=== PATIENT | female | born 1980 | race Caucasian/White ===

== ENCOUNTER 2018-04-17 02:08 | Observation (INO) | payer OTHER ==
[2018-04-17 03:10] LABS: Urine Blood NEGATIVE (NEG); Urine Glucose NEGATIVE (NEG); Urine Protein NEGATIVE (NEG)
--- NOTE | 2018-04-17 03:47 | ER ---
Nurse's Notes [facility] Name: Trish Arambula Age: 38 yrs Sex: Female : 1980 Arrival Date: 04/17/2018 Time: 02:11 Bed 18 Private MD: Diagnosis: Abdominal tenderness;Functional dyspepsia Presentation: 04/17 02:40 Presenting complaint: Patient states: that she is having severe burning pain to upper fc abd. Was seen at urgent care on Saturday for sore throat. Given antibiotics for strep even though it was not positive. Then on Saturday she started to having abd pain, diarrhea, fever and nausea. Stopped the antibiotics. Continues to have abd pain, is tired and just feels bad. Transition of care: patient was not received from another setting of care. Onset of symptoms was April 14, 2018. Risk Assessment: Do you want to hurt yourself or someone else? Patient reports no desire to harm self or others. Initial Sepsis Screen: Does the patient meet any 2 criteria? No. Patient's initial sepsis screen is negative. Does the patient have a suspected source of infection? No. Patient's initial sepsis screen is negative. Care prior to arrival: None. 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 - Social history:: Smoking status: Patient/guardian denies using tobacco, Patient/guardian denies using alcohol, street drugs. - Ebola Screening: : Patient negative for fever greater than or equal to 101.5 degrees Fahrenheit, and additional compatible Ebola Virus Disease symptoms Patient denies exposure to infectious person Patient denies travel to an Ebola-affected area in the 21 days before illness onset. - Family history:: not pertinent. Screenin:00 Abuse screen: Denies threats or abuse. Nutritional screening: No deficits noted. jb4 Tuberculosis screening: No symptoms or risk factors identified. Fall Risk None identified. Assessment: 03:00 General: Appears in no apparent distress. comfortable, Behavior is calm, cooperative, jb4 appropriate for age. Pain: Complains of pain in epigastric area and right upper quadrant Pain radiates to left upper quadrant Pain currently is 4 out of 10 on a pain scale. Quality of pain is described as burning, Pain began Last saturday. Aggravated by eating. Neuro: Level of Consciousness is awake, alert, obeys commands, Oriented to person, place, time, situation. Cardiovascular: Patient's skin is warm and dry. Respiratory: Airway is patent Respiratory effort is even, unlabored, Respiratory pattern is regular, symmetrical. GI: Abdomen is flat, Bowel sounds present X 4 quads. Abd is soft and non tender in left upper quadrant, right lower quadrant and left lower quadrant Abdomen is tender to palpation in epigastric area and right upper quadrant Reports upper abdominal pain, diarrhea, nausea. : No signs and/or symptoms were reported regarding the genitourinary system. EENT: No signs and/or symptoms were reported regarding the EENT system. Derm: Skin is intact, Skin is pink, warm \T\ dry. Musculoskeletal: Circulation, motion, and sensation intact. 04:00 Reassessment: Patient appears in no apparent distress at this time. Patient and/or jb4 family updated on plan of care and expected duration. Pain level reassessed. Patient is alert, oriented x 3, equal unlabored respirations, skin warm/dry/pink. 04:00 Reassessment: Pt admitted to ER hold, See [facility] for further documentation. jb4 05:00 Reassessment: Patient appears in no apparent distress at this time. Patient and/or jb4 family updated on plan of care and expected duration. Pain level reassessed. Patient is alert, oriented x 3, equal unlabored respirations, skin warm/dry/pink. 06:00 Reassessment: Patient appears in no apparent distress at this time. Patient and/or jb4 family updated on plan of care and expected duration. Pain level reassessed. Patient is alert, oriented x 3, equal unlabored respirations, skin warm/dry/pink. 07:00 Reassessment: Patient appears in no apparent distress at this time. Patient and/or jb4 family updated on plan of care and expected duration. Pain level reassessed. Patient is alert, oriented x 3, equal unlabored respirations, skin warm/dry/pink. PT was going to be admitted. After ultrasound, ER physician decided to discharge. Vital Signs: 02:44 BP 119 / 87; Pulse 73; Resp 20; Temp 98.3; Pulse Ox 99% on R/A; Weight 81.65 kg (R); fc Height 5 ft. 10 in. (177.80 cm) (R); Pain 5/10; 04:00 BP 121 / 96; Pulse 64; Resp 16; Pulse Ox 100% on R/A; jb4 05:00 BP 124 / 80; Pulse 60; Resp 16; Pulse Ox 97% on R/A; jb4 06:00 BP 110 / 80; Pulse 60; Resp 18; Pulse Ox 98% on R/A; jb4 07:00 BP 116 / 87; Pulse 65; Resp 16; Pulse Ox 100% on R/A; jb4 02:44 Body Mass Index 25.83 (81.65 kg, 177.80 cm) ED Course: 02:11 Patient arrived in ED. ag3 02:42 Triage completed. 02:43 Lorenzo Weston, RN is Primary Nurse. jb4 02:44 Arm band placed on Patient placed in an exam room, on a stretcher. fc 03:00 Patient has correct armband on for positive identification. Placed in gown. Bed in low jb4 position. Call light in reach. Side rails up X 1. Pulse ox on. NIBP on. 03:08 Inserted saline lock: 22 gauge in right antecubital area, using aseptic technique. ag4 Blood collected. 03:33 Basic Metabolic Panel Sent. jb4 03:33 CBC with Diff Sent. jb4 03:33 Creatinine for Radiology Sent. jb4 03:33 Hepatic Function Sent. jb4 03:33 Lipase Sent. jb4 03:34 Praveen Desai MD is Attending Physician. perez 03:45 Curly Haywood MD is Hospitalizing Provider. perez 04:56 No provider procedures requiring assistance completed. Patient admitted, IV remains in jb4 place. 06:54 Hernán Smiley MD is Referral Physician. perez 06:54 Curly Haywood MD is Referral Physician. perez Administered Medications: 03:52 Drug: Pepcid 20 mg Route: IVP; Site: right antecubital; jb4 04:30 Follow up: Response: No adverse reaction jb4 03:54 Drug: Zofran 4 mg Route: IVP; Site: right antecubital; jb4 04:30 Follow up: Response: No adverse reaction; Nausea is decreased jb4 03:58 Drug: fentaNYL (PF) 25 mcg Route: IVP; Site: right antecubital; jb4 04:30 Follow up: Response: No adverse reaction; Pain is decreased jb4 04:49 Drug: Zosyn 3.375 grams Route: IVPB; Infused Over: 60 mins; Site: right antecubital; jb4 05:49 Follow up: Response: No adverse reaction; IV Status: Completed infusion jb4 04:49 Drug: NS 0.9% with KCl 20 mEq/L 1000 ml Route: IV; Rate: 125 ml/hr; Site: right jb4 antecubital; 06:13 Follow up: Response: No adverse reaction; IV Status: Infusion continued upon admission jb4 Outcome: 03:46 Decision to Hospitalize by Provider. perez 04:56 Admitted to ER Hold. Please see [facility] for further documentation. jb4 04:56 Condition: stable 04:56 Discharge instructions given to patient, Instructed on the need for admit, Demonstrated understanding of instructions. 06:55 Discharge ordered by . perez 07:12 Discharged to home ambulatory, with family. jb4 07:12 Condition: stable 07:12 Discharge instructions given to patient, Instructed on discharge instructions, follow up and referral plans. medication usage, Demonstrated understanding of instructions, follow-up care, medications. 07:13 Patient left the ED. jb4 Signatures: Praveen Desai MD MD cha Chretien, Felicia, RN RN fc Bryson, James, RN RN jb4 Shonda Flower3 Barak Mccartney 4
--- NOTE | 2018-04-17 03:47 | EDPHYS ---
Physician Documentation [facility] Name: Trish Arambula Age: 38 yrs Sex: Female : 1980 Arrival Date: 04/17/2018 Time: 02:11 Bed 18 Private MD: ED Physician Praveen Desai HPI: 04/17 03:41 This 38 yrs old Female presents to ER via Ambulatory with complaints of perez Abdominal Pain. 03:41 The patient presents with abdominal pain in the epigastric area, in the upper abdomen. perez Onset: The symptoms/episode began/occurred just prior to arrival, this morning. The symptoms radiate to back. Associated signs and symptoms: none. The symptoms are described as crampy, dull. Modifying factors: The symptoms are alleviated by nothing, the symptoms are aggravated by food. Severity of pain: At its worst the pain was moderate. The patient has experienced similar episodes in the past, a few times. 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 - Social history:: Smoking status: Patient/guardian denies using tobacco, Patient/guardian denies using alcohol, street drugs. - Ebola Screening: : Patient negative for fever greater than or equal to 101.5 degrees Fahrenheit, and additional compatible Ebola Virus Disease symptoms Patient denies exposure to infectious person Patient denies travel to an Ebola-affected area in the 21 days before illness onset. - Family history:: not pertinent. ROS: 03:41 Constitutional: Negative for fever, chills, and weight loss, Eyes: Negative for injury, perez pain, redness, and discharge, ENT: Negative for injury, pain, and discharge, Neck: Negative for injury, pain, and swelling, Cardiovascular: Negative for chest pain, palpitations, and edema, Respiratory: Negative for shortness of breath, cough, wheezing, and pleuritic chest pain, Back: Negative for injury and pain, : Negative for injury, bleeding, discharge, and swelling, MS/Extremity: Negative for injury and deformity, Skin: Negative for injury, rash, and discoloration, Neuro: Negative for headache, weakness, numbness, tingling, and seizure, Psych: Negative for depression, anxiety, suicide ideation, homicidal ideation, and hallucinations, Allergy/Immunology: Negative for hives, rash, and allergies, Endocrine: Negative for neck swelling, polydipsia, polyuria, polyphagia, and marked weight changes, Hematologic/Lymphatic: Negative for swollen nodes, abnormal bleeding, and unusual bruising. 03:41 Abdomen/GI: Positive for abdominal pain, of the epigastric area and right upper quadrant. Exam: 03:41 Constitutional: This is a well developed, well nourished patient who is awake, alert, perez and in no acute distress. Head/Face: Normocephalic, atraumatic. Eyes: Pupils equal round and reactive to light, extra-ocular motions intact. Lids and lashes normal. Conjunctiva and sclera are non-icteric and not injected. Cornea within normal limits. Periorbital areas with no swelling, redness, or edema. ENT: Nares patent. No nasal discharge, no septal abnormalities noted. Tympanic membranes are normal and external auditory canals are clear. Oropharynx with no redness, swelling, or masses, exudates, or evidence of obstruction, uvula midline. Mucous membranes moist. Neck: Trachea midline, no thyromegaly or masses palpated, and no cervical lymphadenopathy. Supple, full range of motion without nuchal rigidity, or vertebral point tenderness. No Meningismus. Chest/axilla: Normal chest wall appearance and motion. Nontender with no deformity. No lesions are appreciated. Cardiovascular: Regular rate and rhythm with a normal S1 and S2. No gallops, murmurs, or rubs. Normal PMI, no JVD. No pulse deficits. Respiratory: Lungs have equal breath sounds bilaterally, clear to auscultation and percussion. No rales, rhonchi or wheezes noted. No increased work of breathing, no retractions or nasal flaring. Back: No spinal tenderness. No costovertebral tenderness. Full range of motion. Skin: Warm, dry with normal turgor. Normal color with no rashes, no lesions, and no evidence of cellulitis. MS/ Extremity: Pulses equal, no cyanosis. Neurovascular intact. Full, normal range of motion. Neuro: Awake and alert, GCS 15, oriented to person, place, time, and situation. Cranial nerves II-XII grossly intact. Motor strength 5/5 in all extremities. Sensory grossly intact. Cerebellar exam normal. Normal gait. Psych: Awake, alert, with orientation to person, place and time. Behavior, mood, and affect are within normal limits. 03:41 Abdomen/GI: Inspection: abdomen appears normal, Bowel sounds: normal, Palpation: mild abdominal tenderness, in the epigastric area and right upper quadrant, Liver: no appreciated palpable abnormalities, Hernia: not appreciated. Vital Signs: 02:44 BP 119 / 87; Pulse 73; Resp 20; Temp 98.3; Pulse Ox 99% on R/A; Weight 81.65 kg (R); fc Height 5 ft. 10 in. (177.80 cm) (R); Pain 5/10; 04:00 BP 121 / 96; Pulse 64; Resp 16; Pulse Ox 100% on R/A; jb4 05:00 BP 124 / 80; Pulse 60; Resp 16; Pulse Ox 97% on R/A; jb4 06:00 BP 110 / 80; Pulse 60; Resp 18; Pulse Ox 98% on R/A; jb4 07:00 BP 116 / 87; Pulse 65; Resp 16; Pulse Ox 100% on R/A; jb4 02:44 Body Mass Index 25.83 (81.65 kg, 177.80 cm) MDM: 03:34 Patient medically screened. [facility] 03:41 Data reviewed: vital signs, nurses notes, lab test result(s). [facility] 04/17 03:06 Order name: Urine Dipstick--Ancillary (enter results); Complete Time: 03:34 [facility] 04/17 03:06 Order name: Urine --Ancillary (enter results); Complete Time: 03:34 [facility] 04/17 03:25 Order name: Basic Metabolic Panel; Complete Time: 04:09 [facility] 04/17 03:25 Order name: CBC with Diff; Complete Time: 04:09 [facility] 04/17 03:25 Order name: Creatinine for Radiology; Complete Time: 04:09 [facility] 04/17 03:25 Order name: Hepatic Function; Complete Time: 04:09 [facility] 04/17 03:25 Order name: Lipase; Complete Time: 04:09 [facility] 04/17 04:10 Order name: US Abdomen Limited [facility] 04/17 07:07 Order name: EDMS 04/17 03:25 Order name: IV Saline Lock; Complete Time: 03:32 jb4 04/17 03:25 Order name: Labs collected and sent; Complete Time: 03:32 jb4 Administered Medications: 03:52 Drug: Pepcid 20 mg Route: IVP; Site: right antecubital; jb4 04:30 Follow up: Response: No adverse reaction jb4 03:54 Drug: Zofran 4 mg Route: IVP; Site: right antecubital; jb4 04:30 Follow up: Response: No adverse reaction; Nausea is decreased jb4 03:58 Drug: fentaNYL (PF) 25 mcg Route: IVP; Site: right antecubital; jb4 04:30 Follow up: Response: No adverse reaction; Pain is decreased jb4 04:49 Drug: Zosyn 3.375 grams Route: IVPB; Infused Over: 60 mins; Site: right antecubital; jb4 05:49 Follow up: Response: No adverse reaction; IV Status: Completed infusion jb4 04:49 Drug: NS 0.9% with KCl 20 mEq/L 1000 ml Route: IV; Rate: 125 ml/hr; Site: right jb4 antecubital; 06:13 Follow up: Response: No adverse reaction; IV Status: Infusion continued upon admission jb4 Disposition: 04/17/18 06:55 Discharged to Home. Impression: Abdominal tenderness, Functional dyspepsia. - Condition is Stable. - Discharge Instructions: Abdominal Pain, Adult, Abdominal Pain, Adult, [id number]. - Prescriptions for Bentyl 20 mg Oral Tablet - take 1 tablet by ORAL route every 6 hours As needed; 20 tablet. Protonix 40 mg Oral Tablet - take 1 tablet by ORAL route once daily; 30 tablet. Zofran 4 mg Oral Tablet - take 1 tablet by ORAL route every 12 hours As needed; 20 tablet. - Medication Reconciliation Form, Thank You Letter, Antibiotic Education, Prescription Opioid Use, Work release form form. - Follow up: Private Physician; When: 2 - 3 days; Reason: Recheck today's complaints, Continuance of care, Re-evaluation by your physician. Follow up: Hernán Smiley MD; When: 2 - 3 days; Reason: Recheck today's complaints, Re-evaluation by your physician. Follow up: Curly Haywood MD; When: 2 - 3 days; Reason: Recheck today's complaints, Re-evaluation by your physician. - Problem is new. - Symptoms have improved. Signatures: Dispatcher [employer] EDMS Praveen Desai MD MD cha Chretien, Felicia, RN RN Lorenzo Weston RN RN jb4 Corrections: (The following items were deleted from the chart) 04:53 03:46 Hospitalization Ordered by Curly Haywood MD for Observation. Preliminary diagnosis fc is Abdominal tenderness. Bed requested for Telemetry/MedSurg (observation). Status is Observation. Condition is Stable. Problem is new. Symptoms have improved. UTI on Admission? No. perez 06:52 04:53 04/17/2018 03:46 Hospitalization Ordered by Curly Haywood MD for Observation. perez Preliminary diagnosis is Abdominal tenderness. Bed requested for [facility] ER HOLD. Status is Observation. Condition is Stable. Problem is new. Symptoms have improved. UTI on Admission? No. fc 07:13 06:55 04/17/2018 06:55 Discharged to Home. Impression: Abdominal tenderness; Functional jb4 dyspepsia. Condition is Stable. Forms are Medication Reconciliation Form, Thank You Letter, Antibiotic Education, Prescription Opioid Use. Follow up: Private Physician; When: 2 - 3 days; Reason: Recheck today's complaints, Continuance of care, Re-evaluation by your physician. Follow up: Hernán Smiley; When: 2 - 3 days; Reason: Recheck today's complaints, Re-evaluation by your physician. Follow up: Curly Haywood; When: 2 - 3 days; Reason: Recheck today's complaints, Re-evaluation by your physician. Problem is new. Symptoms have improved. perez
[2018-04-17 03:56] LABS: Absolute Lymphocytes (CBC) 2.1 K/uL (0.7-4.9); Absolute Monocytes 0.8 K/uL (0.1-1.3); Absolute Neutrophil 5.2 K/uL (1.8-8.0); Basophils % 0.7 % (0-1.3); Eosinophils % 1.5 % (0-4.4); Hematocrit 40.8 % (36.0-45.0); Lymphocytes % 25.2 % (15.3-44.8); MPV 8.5 fL (7.6-11.3); Monocytes % 9.3 % (3.3-12.3); RBC Red Blood Cell Count 4.69 M/uL (3.86-4.86)
[2018-04-17 04:01] LABS: ALT/SGPT 25 U/L (12-78); AST/SGOT 20 U/L (15-37); Albumin 3.3 g/dL (3.4-5.0); Alkaline Phosphatase 90 U/L (45-117); BUN Blood Urea Nitrogen 8 mg/dL (7-18); Bicarbonate 23 mmol/L (21-32); Bilirubin Direct < 0.1 mg/dL (0-0.2); Bilirubin Total 0.2 mg/dL (0.2-1.0); Glucose Level 99 mg/dL (74-106); Lipase 132 U/L (73-393); Potassium 3.2 mmol/L (3.5-5.1); Protein, Total 6.9 g/dL (6.4-8.2); Sodium Level 145 mmol/L (136-145)
[2018-04-17] MEDS ORDERED: FAMOTIDINE 20 MG/2 ML VIAL IV ONE (04:10)
[2018-04-17] MEDS ORDERED: FENTANYL CITR 100 MCG/2 ML ONE (04:10)
[2018-04-17] MEDS ORDERED: ONDANSETRON 4 MG/2 ML VIAL ONE (04:10)
[2018-04-17] MEDS ORDERED: MORPHINE 4 MG/ML SYR IV PRN (04:44)
[2018-04-17] MEDS ORDERED: NS KCL 20MEQ 1,000 ML IV ONE (04:44)
[2018-04-17] MEDS ORDERED: ACETAMINOPHEN 500 MG TAB PO PRN (04:44)
[2018-04-17] MEDS ORDERED: ONDANSETRON 4 MG/2 ML VIAL IV PRN (04:44)
[2018-04-17] MEDS ORDERED: NA CHLORIDE 0.9% 1,000 ML IV SCH (04:44)
[2018-04-17] MEDS ORDERED: PIPER/TAZO/NS 3.375gm 3.375 GM/100 ML BAG ONE (04:45)
[2018-04-17] MEDS ORDERED: NS KCL 20MEQ 20 MEQ/1,000 ML BAG IV SCH (06:00)
[2018-04-17 06:06] VITALS: BMI 26.1
--- NOTE | 2018-04-17 07:07 | RAD REPORT ---
EXAM DESCRIPTION: US - Abdomen Exam Limited - 04/17/2018 6:58 am CLINICAL HISTORY: Abdominal pain COMPARISON: None. FINDINGS: No gallstones, sludge or other abnormalities within the gallbladder lumen. There is no wal l thickening or pericholecystic fluid. No common duct stone or biliary tree dilatation identified. IMPRESSION: Normal gallbladder and biliary tree ultrasound.
[2018-04-17 08:41] VITALS: TEMP 98.3
[2018-04-17 08:46] VITALS: BP 116/87; O2SAT 100
[2018-04-17] MEDS ORDERED: PIPER/TAZO/NS 3.375gm 3.375 GM/100 ML BAG IVPB SCH (12:00)
[2018-04-17] MEDS ORDERED: FAMOTIDINE 20 MG/2 ML VIAL IV SCH (21:00)
== END 2018-04-17 07:14 | disposition home or self-care (01) ==
LOC: ER 02:08 → ERHOLD 03:49
PROVIDERS: ADMIT Surgery; ATTEND Emergency Medicine
DX: R10.816 Epigastric abdominal tenderness (principal); R10.11 Right upper quadrant pain; K30 Functional dyspepsia
CPT/HCPCS: 36415; 76705; 80048; 80076; 81003; 81025; 83690; 85025; 96365; 96375; 99285; G0378; J2405; J2543; J3010

== ENCOUNTER 2018-04-18 08:18 | Day surgery (SDC) | payer OTHER ==
[2018-04-18] MEDS ORDERED: Ringers Lactate 1,000 ML IV ONE (09:15)
[2018-04-18] MEDS ORDERED: LIDOCAINE 1% MPF 5 ML VIAL ONE (10:01)
[2018-04-18] MEDS ORDERED: MIDAZOLAM HCL 2 MG/2 ML INJ ONE (10:01)
[2018-04-18] MEDS ORDERED: PROPOFOL 200 MG/20 ML VIAL IV ONE (10:01)
[2018-04-18 10:57] VITALS: TEMP 98.5
[2018-04-18 10:58] VITALS: BP 115/75; O2SAT 100
--- NOTE | 2018-04-18 11:15 | ENDO RPT ---
[address], [address] EGD PROCEDURE REPORT EXAM DATE: 04/18/2018 PATIENT NAME: Trish Arambula MR#: [id number] BIRTHDATE: 1980 ATTENDING: Curly Haywood DR STATUS: outpatient SENIOR MARKETING COORDINATOR: Olga Patterson RN, Radha Davalos, and Minh Davalos INDICATIONS: The patient is a 38 yr old Female here for an EGD due to mid epigastric abdominal pain PROCEDURE PERFORMED: EGD with biopsy for H. pylori MEDICATIONS: Per Anesthesia. TOPICAL ANESTHETIC: none CONSENT: The patient understands the risks and benefits of the procedure and understands that these risks include, but are not limited to: sedation, allergic reaction, infection, perforation and/or bleeding. Alternative means of evaluation and treatment include, among others: physical exam, x-rays, and/or surgical intervention. The patient elects to proceed with this endoscopic procedure. DESCRIPTION OF PROCEDURE: During intra-op preparation period all mechanical medical equipment was checked for proper function. Hand hygiene and appropriate measures for infection prevention was taken. Procedure, possible complications, and alternatives including but not limited to the possibility of bleeding, perforation, tear, infection, sepsis, need for surgery, need for blood transfusion, and anesthesia related complications were explained to the patient. After the risks, benefits and alternatives of the procedure were thoroughly explained, Informed consent was verified, confirmed and timeout was successfully executed by the treatment team. The patient was placed in the left lateral position. The patient was anesthetized with topical anesthesia. Through the anesthetized oropharyngeal area, the scope was passed without any difficulty. The [id number] ([id number]) endoscope was introduced through the mouth and advanced to the second portion of the duodenum. Retroflexed views revealed no abnormalities. The gastroscope was then slowly withdrawn and removed. Mild gastritis was found in the body and the antrum of the stomach. A biopsy for H. pylori was taken. Multiple biopsies were obtained and sent to pathology. Duodenitis was found in the bulb of the duodenum. A biopsy for H. pylori was taken. ADVERSE EVENTS: There were no complications. IMPRESSIONS: 1. Mild gastritis was found in the body and the antrum of the stomach 2. Duodenitis was found in the bulb of the duodenum RECOMMENDATIONS: 1. anti-reflux regimen 2. acid suppression therapy 3. await biopsy results 4. follow-up: office 2 week(s) 5. avoid NSAIDS 6. follow-up of helicobacter pylori status, treat if indicated REPEAT EXAM: for EGD. Curly Haywood DR eSigned: Curly Haywood DR 04/18/2018 10:08 AM cc: CPT CODES: ICD9 CODES: PATIENT NAME: RalfTrish MR#: [id number]
== END 2018-04-18 10:55 | disposition home health service (06) ==
LOC: OR 08:18
PROVIDERS: ATTEND Surgery
PROC: 0DB78ZX Excision of Stomach, Pylorus, Via Natural or Artificial Opening Endoscopic, Diagnostic (ICD-10-PCS; 2018-04-18)
PROC: 0DB68ZX Excision of Stomach, Via Natural or Artificial Opening Endoscopic, Diagnostic (ICD-10-PCS; 2018-04-18)
PROC: 0DB98ZX Excision of Duodenum, Via Natural or Artificial Opening Endoscopic, Diagnostic (ICD-10-PCS; principal; 2018-04-18 10:15)
DX: K29.50 Unspecified chronic gastritis without bleeding (principal); K29.80 Duodenitis without bleeding
CPT/HCPCS: 88305; 88312; J2250; J2704

== ENCOUNTER 2018-05-08 07:33 | Day surgery (SDC) | payer OTHER ==
[2018-05-08] MEDS ORDERED: PROPOFOL 200 MG/20 ML VIAL IV ONE (07:48)
[2018-05-08] MEDS ORDERED: DEXAMETHASONE 4 MG/ML VIAL ONE (07:48)
[2018-05-08] MEDS ORDERED: FENTANYL CITR 100 MCG/2 ML ONE (07:48)
[2018-05-08] MEDS ORDERED: LIDOCAINE 2% MPF 5 ML VIAL ONE (07:48)
[2018-05-08] MEDS ORDERED: ROCURONIUM 50 MG/5 ML VIAL IV ONE (07:48)
[2018-05-08] MEDS ORDERED: MIDAZOLAM HCL 2 MG/2 ML INJ ONE (07:48)
[2018-05-08] MEDS ORDERED: CEFOXITIN/SWI 1gm 1 GM/10 ML SYR ONE (07:59)
[2018-05-08] MEDS ORDERED: Ringers Lactate 1,000 ML IV ONE (07:59)
[2018-05-08] MEDS ORDERED: SCOPOLAMINE HYDROBROMIDE PATCH TD ONE (07:59)
[2018-05-08] MEDS ORDERED: ONDANSETRON 4 MG/2 ML VIAL ONE (08:37)
[2018-05-08] MEDS ORDERED: BUPIVACAINE 0.25% PF 10 ML VIAL ONE (08:38)
--- NOTE | 2018-05-08 09:18 | P.OP ---
Preoperative diagnosis: Biliary Dyskinesia Postoperative diagnosis: Biliary Dyskinesia Primary procedure: Laparoscopic Cholecystectomy Anesthesia: GETA + Local Estimated blood loss: <10cc Specimen: Gallbladder Findings: Bluish Gallbladder Complications: None Transferred to: Recovery Room Condition: Good
[2018-05-08] MEDS ORDERED: KETOROLAC 30 MG/ML INJ ONE (09:29)
[2018-05-08] MEDS: FENTANYL CITR 100 MCG/2 ML ONE ×4 (09:37→09:52)
[2018-05-08 09:49] VITALS: O2SAT 100
[2018-05-08] MEDS ORDERED: HYDROCODONE/APAP 5/325 MG TAB ONE (10:36)
[2018-05-08 10:51] VITALS: TEMP 97.5
[2018-05-08 15:48] VITALS: BP 112/64
--- NOTE | 2018-05-08 21:20 | OP ---
Date of Procedure: 05/08/2018 Surgeon: Curly Haywood MD, Preoperative Diagnosis: Biliary dyskinesia. Postoperative Diagnosis: Biliary dyskinesia. Procedure Performed: Laparoscopic cholecystectomy. Anesthesia: General endotracheal plus local with 0.25% Marcaine with epinephrine. Estimated Blood Loss: Less than 10 cc. Specimen: Gallbladder. Findings: Bluish gallbladder. Complications: None. Disposition: Transferred to recovery room in good condition. Procedure In Detail: After informed consent was obtained, the patient was brought to the operating r oom, prepped and draped in usual sterile fashion. After adequate anesthesia was achieved, supraumbil ical area was anesthetized with 0.25% Marcaine and sharply incised. A 5-mm trocar was introduced in the abdomen without evidence of complication. Insufflation was obtained to 15 mmHg this time. The a michelle was inspected for injury to vital structures, none was appreciated at this time. The patient was then positioned slightly head up. Additional trocar chosen in the epigastric region. This was kurt larly anesthetized, sharply incised. A 5-mm trocar was introduced under direct visualization without evidence of complication. The umbilical trocar was then up-sized to a 12 mm under direct visualizat ion without evidence of complication. The patient was then positioned slightly right side up and hea d up and the additional trocar site was identified in the right upper quadrant. This was similarly a nesthetized and sharply incised and a 5-mm trocar was introduced in the abdomen without evidence of c omplication under direct visualization. The patient was then positioned in a gallbladder position, t hat is head-up right-side up and the grasper was used to grasp the gallbladder, which was found to be floppy and bluish in discoloration, pushing the patient's gallbladder toward the right shoulder. Di ssection continued down along the wall of the gallbladder down to expose the cystic duct and cystic a rtery. The critical view of safety was obtained. At this time, after clearing posteriorly and ident ifying only 2 structures entering the gallbladder, these were both doubly clipped on the proximal bell e and singly on the distal side with titanium clips and Endo Sebastián were then brought in and used to ligate the 2 above structures on the gallbladder. We then removed the hepatic fossa without evidence of complication using electrocautery. The gallbladder was then placed in an EndoCatch bag, removed the umbilical trocar, and sent off for pathologic examination. The abdomen was then re-insufflated. The area was inspected. The surgical site was inspected. At the gallbladder fossa, the clips were found to be in good anatomic position. The area was copiously irrigated and suctioned out until comp letely dry with no additional hemostatic maneuvers required. The patient was positioned in neutral p osition. The umbilical trocar was then removed and the umbilical trocar site was closed using a Carrie dodd-Latrell suture passer with 0 Vicryl in interrupted fashion with good approximation of the tissues . At this time, all remaining trocars were removed under direct visualization without evidence of co mplication. After completely decompressing the abdomen, all skin incisions were copiously irrigated and closed with a 4-0 Monocryl in a running fashion Dermabond placed over top. The patient tolerated the procedure well without evidence of complication and transferred to the PACU in good condition. All counts were correct at the end of the case. KANDICE/WALTER Voice ID: [id number] Report ID: [id number]
== END 2018-05-08 12:05 | disposition home or self-care (01) ==
LOC: OR 07:33
PROVIDERS: ATTEND Surgery
PROC: 0FT44ZZ Resection of Gallbladder, Percutaneous Endoscopic Approach (ICD-10-PCS; principal; 2018-05-08 08:30)
DX: K82.8 Other specified diseases of gallbladder (principal); K81.1 Chronic cholecystitis; K21.9 Gastro-esophageal reflux disease without esophagitis
CPT/HCPCS: 81025; 88304; J2250; J2405; J2704; J3010

== ENCOUNTER 2018-10-23 20:33 | Observation (INO) | payer OTHER ==
[2018-10-23 21:21] LABS: Urine Blood NEGATIVE (NEG); Urine Glucose NEGATIVE (NEG); Urine Protein NEGATIVE (NEG); Urine Specific Gravity 1.025 (1.005-1.030)
[2018-10-23] MEDS ORDERED: MORPHINE 4 MG/ML SYR ONE (21:48)
[2018-10-23] MEDS ORDERED: ONDANSETRON 4 MG/2 ML VIAL ONE (21:48)
--- NOTE | 2018-10-24 01:01 | RAD REPORT ---
EXAM DESCRIPTION: US - Transvaginal OB - 10/23/2018 10:24 pm CLINICAL HISTORY: ABD CRAMPING, COMPARISON: No comparisons FINDINGS: The uterus measures 7.3 x 5.7 x 4.3 cm. Endometrial stripe measures 9 mm. There is no evid ence of a gestational sac within the endometrium. A small 5 mm cystic area seen posterior to the fund al endometrium. The right ovary mid measures 3.9 x 3.7 x 2.9 cm with a 3.6 x 2.9 cm cyst present. Normal Doppler bloo d flow seen to the right ovary. The left ovary measures 2.8 x 2.7 x 1.6 cm. Normal Doppler blood flow is seen to the left ovary. There is no evidence of torsion. No pelvic ascites. IMPRESSION: No normal gestational sac is seen within the endometrial canal. Small 5 mm cystic area i s seen posterior to the fundal endometrial stripe. This is of unclear etiology and could potentially represent an abnormally positioned gestational sac. Recommend follow-up ultrasound in 7 days and lanny elation with serial HCG levels. No evidence of ovarian torsion. The findings were discussed with Dr. Prather in the ER on 10/24/2018 at 12:55 a.m. by telephone.
[2018-10-24] MEDS ORDERED: FENTANYL CITR 100 MCG/2 ML ONE (01:12)
[2018-10-24 02:15] LABS: Absolute Lymphocytes (CBC) 4.4 K/uL (0.7-4.9); Basophils % 0.6 % (0-1.3); Lymphocytes % 33.8 % (15.3-44.8); MPV 9.1 fL (7.6-11.3); RBC Red Blood Cell Count 3.89 M/uL (3.86-4.86)
[2018-10-24 02:18] LABS: Potassium 4.1 mmol/L (3.5-5.1)
--- NOTE | 2018-10-24 03:15 | EDPHYS ---
Physician Documentation [facility] Name: Trish Arambula Age: 38 yrs Sex: Female : 1980 Arrival Date: 10/23/2018 Time: 20:36 Bed 20 Private MD: Dayanara Jason ED Physician Hossein Prather HPI: 10/23 21:01 This 38 yrs old Female presents to ER via Ambulatory with complaints of kb Pelvic Pain, Back Pain, concern. 21:04 The patient presents to the emergency department with abdominal pain, of the suprapubic kb area and left lower quadrant, that started 5 day(s) ago, described as constant, crampy. The estimated gestational age is 6 weeks. course: care: private OB physician, Dr. Jason, Ultrasound: the patient had an ultrasound, which showed nothing seen in uterus or tubes. Previous pregnancies: in previous pregnancies patient has had. Associated signs and symptoms: Pertinent positives: abdominal pain, Pertinent negatives: chest pain, diarrhea, dysuria, fever, frequency, nausea, ruptured membranes, seizure, shortness of breath, vaginal bleeding, vaginal discharge, vomiting. The patient has not experienced similar symptoms in the past. The patient has been recently seen by a physician:. Pt reports she had IVF and should be approx 5 weeks 5 days . States she had blood work last week and hcg was 314. Went back on Saturday with left abd pain and her hcg was 152. Rechecked hcg on Saturday and it was 126. Her fertility dr told her it could be an ectopic because her numbers were going down slowly so if she had increased pain she needed to come to the ER. States the pain has been worse today with nausea. Was supposed to have more blood work tomorrow, but was advised not to wait due to the pain. 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 - Social history:: Smoking status: Patient/guardian denies using tobacco. - Ebola Screening: : No symptoms or risks identified at this time. ROS: 20:58 Constitutional: Negative for fever, chills, and weight loss, Cardiovascular: Negative kb for chest pain, palpitations, and edema, Respiratory: Negative for shortness of breath, cough, wheezing, and pleuritic chest pain, Back: Negative for injury and pain, : Negative for injury, bleeding, discharge, and swelling, MS/Extremity: Negative for injury and deformity, Skin: Negative for injury, rash, and discoloration, Neuro: Negative for headache, weakness, numbness, tingling, and seizure. 20:58 Abdomen/GI: Positive for abdominal pain, nausea. Exam: 21:01 Constitutional: This is a well developed, well nourished patient who is awake, alert, kb and in no acute distress. Head/Face: Normocephalic, atraumatic. Chest/axilla: Normal chest wall appearance and motion. Nontender with no deformity. No lesions are appreciated. Cardiovascular: Regular rate and rhythm with a normal S1 and S2. No gallops, murmurs, or rubs. Normal PMI, no JVD. No pulse deficits. Respiratory: Lungs have equal breath sounds bilaterally, clear to auscultation and percussion. No rales, rhonchi or wheezes noted. No increased work of breathing, no retractions or nasal flaring. Back: No spinal tenderness. No costovertebral tenderness. Full range of motion. Skin: Warm, dry with normal turgor. Normal color with no rashes, no lesions, and no evidence of cellulitis. MS/ Extremity: Pulses equal, no cyanosis. Neurovascular intact. Full, normal range of motion. Neuro: Awake and alert, GCS 15, oriented to person, place, time, and situation. Cranial nerves II-XII grossly intact. Motor strength 5/5 in all extremities. Sensory grossly intact. Cerebellar exam normal. Normal gait. 21:01 Abdomen/GI: Inspection: abdomen appears normal, Bowel sounds: normal, in all quadrants, Palpation: soft, in all quadrants, mild abdominal tenderness, in the suprapubic area, moderate abdominal tenderness, in the left lower quadrant. 10/24 02:10 : Pelvic Exam: External exam: is normal, Speculum exam: no bleeding is noted, no cp cervicitis, os that is closed, bimanual exam reveals no cervical motion tenderness, no adnexal tenderness on right, left adnexal tenderness, no adnexal mass on right, no adnexal mass on left, discharge, white, the nurse was present for the exam. Vital Signs: 10/23 20:41 BP 133 / 89; Pulse 84; Resp 16; Temp 98.4; Pulse Ox 98% on R/A; Weight 83.01 kg; Height la1 5 ft. 10 in. (177.80 cm); Pain 5/10; 21:55 BP 106 / 76; Pulse 73; Resp 16; Temp 98.4; Pulse Ox 99% on R/A; ak1 10/24 00:40 BP 114 / 71; Pulse 67; Resp 16; Temp 98.4; Pulse Ox 100% on R/A; ak1 01:00 BP 109 / 70; Pulse 65; Resp 16; Temp 98.6; Pulse Ox 100% on R/A; ak1 02:55 BP 99 / 63; Pulse 65; Resp 16; Pulse Ox 99% on R/A; ak1 10/23 20:41 Body Mass Index 26.26 (83.01 kg, 177.80 cm) la1 MDM: 10/23 20:44 Patient medically screened. kb 21:01 Data reviewed: vital signs, nurses notes. Data interpreted: Pulse oximetry: on room air kb is 98 %. Interpretation: normal. 21:44 Transition of care: After a detail discussion of the patient's case, care is kb transferred to Praveen XIE. 10/24 02:24 Physician consultation: Clark Perdomo MD. kdr 03:04 Physician consultation: Clark Perdomo MD in the emergency department to see patient at 03:04. 10/23 20:45 Order name: HCG-Quantitative; Complete Time: 21:24 kb 10/23 20:45 Order name: Abo/rh Typing; Complete Time: 02:58 kb 10/23 20:54 Order name: Urine Dipstick--Ancillary (enter results); Complete Time: 21:24 mw2 10/23 20:54 Order name: Urine --Ancillary (enter results); Complete Time: 21:24 mw2 10/24 01:18 Order name: CBC with Diff; Complete Time: 02:58 cp 10/24 01:18 Order name: BMP; Complete Time: 02:58 cp 10/24 01:18 Order name: Type And Screen cp 10/24 01:27 Order name: GC (GONORR/CHLAMYDIA) Probe cp 10/24 01:27 Order name: Wet Prep cp 10/24 03:30 Order name: Basic Metabolic Panel EDMS 10/24 03:30 Order name: Basic Metabolic Panel EDMS 10/24 03:30 Order name: CBC with Automated Diff EDMS 10/24 03:30 Order name: CBC with Automated Diff EDMS 10/24 03:30 Order name: Lipase EDMS 10/23 20:45 Order name: US Transvaginal Ob; Complete Time: 01:03 kb 10/24 01:11 Interpretation: Report reviewed. 10/23 20:45 Order name: Urine Dipstick-Ancillary (obtain specimen); Complete Time: 20:53 kb 10/24 01:18 Order name: IV; Complete Time: 01:19 cp 10/24 01:20 Order name: Pelvic Exam Setup; Complete Time: 01:52 ak1 10/24 03:30 Order name: NPO EDMS 10/24 03:30 Order name: Lipase EDMS 10/24 03:30 Order name: Liver (Hepatic) Function EDMS 10/24 03:30 Order name: Liver (Hepatic) Function EDMS Administered Medications: 10/23 21:54 Drug: Zofran 4 mg Route: IVP; Site: right antecubital; ak1 22:16 Follow up: Response: No adverse reaction ak1 21:54 Drug: morphine 4 mg Route: IVP; Site: right antecubital; ak1 22:16 Follow up: Response: No adverse reaction; Pain is unchanged, physician notified; RASS: ak1 Alert and Calm (0) 22:39 Not Given (Patient Refused): Bentyl 20 mg PO once ak1 22:39 Not Given (Patient Refused): Tylenol 1000 mg PO once ak1 22:39 Not Given (Patient Refused): NS 0.9% 1000 ml IV at 1 bolus Per protocol; 1000 mL bolus ak1 10/24 01:17 Drug: fentaNYL (PF) 25 mcg Route: IVP; Site: right antecubital; ak1 01:52 Follow up: Response: No adverse reaction; Pain is decreased; RASS: Alert and Calm (0) ak1 02:59 Not Given (Patient Refused): NS 0.9% 1000 ml IV at 1 bolus Per protocol; 1000 mL bolus ak1 Disposition: 04:16 Co-signature as Attending Physician, Hossein Prather MD I agree with the assessment and kdr plan of care. Disposition: 10/24/18 03:14 Hospitalization ordered by Clark Perdomo for Observation. Preliminary diagnosis are related conditions, unspecified, first trimester, Lower abdominal pain, unspecified - left, possible ectopic. - [facility]. - Status is Observation. ak1 - Condition is Stable. - Problem is new. - Symptoms have improved. UTI on Admission? No Signatures: Dispatcher [employer] EDMS Cristine Cifuentes, TESTER OPERATOR-C TESTER OPERATOR-Ckb Hossein Prather MD MD kdr Roberth Stallworth RN RN meri1 Claudette Chopra RN RN ak1 Praveen Rodriguez PA PA cp Garcia, Cindy, RN RN cg Corrections: (The following items were deleted from the chart) 03:33 03:14 Hospitalization Ordered by Clark Perdomo MD for Observation. Preliminary cg diagnosis is related conditions, unspecified, first trimester; Lower abdominal pain, unspecified - left, possible ectopic. Bed requested for [facility]. Status is Observation. Condition is Stable. Problem is new. Symptoms have improved. UTI on Admission? No. cp 04:04 03:33 10/24/2018 03:14 Hospitalization Ordered by Clark Perdomo MD for Observation. ak1 Preliminary diagnosis is related conditions, unspecified, first trimester; Lower abdominal pain, unspecified - left, possible ectopic. Bed requested for [facility]. Status is Observation. Condition is Stable. Problem is new. Symptoms have improved. UTI on Admission? No. cg
--- NOTE | 2018-10-24 03:15 | ER ---
Nurse's Notes [facility] Name: Trish Arambula Age: 38 yrs Sex: Female : 1980 Arrival Date: 10/23/2018 Time: 20:36 Bed 20 Private MD: Dayanara Jason Diagnosis: related conditions, unspecified, first trimester;Lower abdominal pain, unspecified-left, possible ectopic Presentation: 10/23 20:39 Presenting complaint: Patient states: I had IVF and had my 5 week apt on Saturday and my la1 HCG was 152 and they couldn't see anything on the US, I went back on Saturday for FU and my HCG only lowered slightly to 128. They were concerned for ectopic and gave me pain medicine but told me if my pain got worse to come to the ER. My pain is worse now. Transition of care: patient was not received from another setting of care. Onset of symptoms was October 23, 2018. Risk Assessment: Do you want to hurt yourself or someone else? Patient reports no desire to harm self or others. Initial Sepsis Screen: Does the patient meet any 2 criteria? No. Patient's initial sepsis screen is negative. Does the patient have a suspected source of infection? No. Patient's initial sepsis screen is negative. Care prior to arrival: None. 20:39 Method Of Arrival: Ambulatory la1 20:39 Acuity: YISSEL 3 la1 Triage Assessment: 20:45 General: Appears in no apparent distress. Behavior is calm, cooperative. 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 - Social history:: Smoking status: Patient/guardian denies using tobacco. - Ebola Screening: : No symptoms or risks identified at this time. Screenin:45 Abuse screen: Denies threats or abuse. Denies injuries from another. Nutritional ak1 screening: No deficits noted. Tuberculosis screening: No symptoms or risk factors identified. Fall Risk None identified. Assessment: 21:01 General: Appears in no apparent distress. Behavior is calm, cooperative. Pain: ak1 Complains of pain in left lower quadrant and suprapubic area. Neuro: Level of Consciousness is awake, alert, obeys commands, Oriented to person, place, time, situation, Community Marketing Coordinator are equal bilaterally Moves all extremities. Gait is steady, Speech is normal, Facial symmetry appears normal. Cardiovascular: No deficits noted. Respiratory: Airway is patent Trachea midline Respiratory effort is even, unlabored, Respiratory pattern is regular. GI: Abdomen is round non-distended, Abd is soft X 4 quads Abdomen is tender to palpation in left lower quadrant and suprapubic area. : No signs and/or symptoms were reported regarding the genitourinary system. EENT: No signs and/or symptoms were reported regarding the EENT system. Derm: No signs and/or symptoms reported regarding the dermatologic system. Musculoskeletal: No signs and/or symptoms reported regarding the musculoskeletal system. 21:20 Reassessment: US at bedside. ak1 21:56 Reassessment: Patient appears in no apparent distress at this time. No changes from ak1 previously documented assessment. Patient and/or family updated on plan of care and expected duration. Pain level reassessed. Patient is alert, oriented x 3, equal unlabored respirations, skin warm/dry/pink. pt and family updated on plan of care and wait for official US report. 22:39 Reassessment: provider asked to come exam and assess pt for other pain interventions, ak1 provider stated he will wait for the US report. pt and family informed of no new orders from provider. pt and family informed of wait for US report due to images not being able to be received by radiologist. pt refused Tylenol, Bentyl and NS stating that "if the morphine did not help, there is no reason to take those" pt uncomfortable with waves of pain to left lower quadrant described by the pt as sharp and stabbing. 23:29 Reassessment: Patient appears in no apparent distress at this time. No changes from ak1 previously documented assessment. Patient and/or family updated on plan of care and expected duration. Pain level reassessed. Patient is alert, oriented x 3, equal unlabored respirations, skin warm/dry/pink. pt continues to c/o intermittent sharp pains to LLQ. pt and family informed that US report is has not been resulted as of yet. 23:42 Reassessment: Dr. Prather notified of US imagining issues and pt and family updated on ak1 situation and plan of care. pt appears to be comfortable at this time. 10/24 02:43 Reassessment: Dr. Prather spoke with Dr. Perdomo,facility sales and admin manager action, who is now being ak1 contacted by Dr. Dayanara aJson,pt IVF doctor as to what the next step is. 03:05 Reassessment: Dr. Perdomo at bedside. ak1 Vital Signs: 10/23 20:41 BP 133 / 89; Pulse 84; Resp 16; Temp 98.4; Pulse Ox 98% on R/A; Weight 83.01 kg; Height la1 5 ft. 10 in. (177.80 cm); Pain 5/10; 21:55 BP 106 / 76; Pulse 73; Resp 16; Temp 98.4; Pulse Ox 99% on R/A; ak1 10/24 00:40 BP 114 / 71; Pulse 67; Resp 16; Temp 98.4; Pulse Ox 100% on R/A; ak1 01:00 BP 109 / 70; Pulse 65; Resp 16; Temp 98.6; Pulse Ox 100% on R/A; ak1 02:55 BP 99 / 63; Pulse 65; Resp 16; Pulse Ox 99% on R/A; ak1 10/23 20:41 Body Mass Index 26.26 (83.01 kg, 177.80 cm) la1 ED Course: 10/23 20:36 Patient arrived in ED. am2 20:36 Dayanara Jason is Private Physician. am2 20:39 Arm band placed on right wrist. la1 20:41 Triage completed. la1 20:44 Crist[facility]ifuentes [facility]-C [facility] kb 20:44 Hossein Prather MD is Attending Physician. kb 20:44 Claudette Chopra, MARYANNE is Primary Nurse. ak1 21:00 Initial lab(s) drawn, by me, sent to lab. Inserted saline lock: 22 gauge in right ak1 antecubital area, using aseptic technique. Blood collected. 21:01 Patient has correct armband on for positive identification. Placed in gown. Bed in low ak1 position. Call light in reach. Side rails up X 1. Adult w/ patient. Pulse ox on. NIBP on. 22:05 PHCP role handed off by Cristine Cifuentes FNP-C cp 22:05 Praveen Rodriguez PA is PHCP. cp 22:24 Transvaginal Ob In Process Unspecified. EDVA 10/24 01:53 Assist provider with pelvic exam: Set up pelvic tray. Performed by Praveen XIE ak1 Specimens sent to lab. Patient tolerated well. 03:13 Clark Perdomo MD is Hospitalizing Provider. cp 03:49 IV discontinued, intact, bleeding controlled, No redness/swelling at site. Pressure ak1 dressing applied. Administered Medications: 10/23 21:54 Drug: Zofran 4 mg Route: IVP; Site: right antecubital; ak1 22:16 Follow up: Response: No adverse reaction ak1 21:54 Drug: morphine 4 mg Route: IVP; Site: right antecubital; ak1 22:16 Follow up: Response: No adverse reaction; Pain is unchanged, physician notified; RASS: ak1 Alert and Calm (0) 22:39 Not Given (Patient Refused): Bentyl 20 mg PO once ak1 22:39 Not Given (Patient Refused): Tylenol 1000 mg PO once ak1 22:39 Not Given (Patient Refused): NS 0.9% 1000 ml IV at 1 bolus Per protocol; 1000 mL bolus ak1 10/24 01:17 Drug: fentaNYL (PF) 25 mcg Route: IVP; Site: right antecubital; ak1 01:52 Follow up: Response: No adverse reaction; Pain is decreased; RASS: Alert and Calm (0) ak1 02:59 Not Given (Patient Refused): NS 0.9% 1000 ml IV at 1 bolus Per protocol; 1000 mL bolus ak1 Outcome: 03:14 Decision to Hospitalize by Provider. cp 03:44 Admitted to L \\T\\ D, accompanied by tech, via wheelchair, room 279, with chart, Report ak1 called to Claudette MADDEN 03:44 Condition: good 03:44 Discharge instructions given to patient, family, Instructed on the need for admit. 04:04 Patient left the ED. ak1 Signatures: Dispatcher [employer] [facility] Cristine Cifuentes FNP-C FNP-Roberth Landon RN RN laClaudette Coyne, RN RN ak1 Praveen Rodriguez PA PA cp Moreno, Amanda am2
[2018-10-24] MEDS ORDERED: PROMETHAZINE 25 MG/ML VIAL IM PRN (03:56)
[2018-10-24] MEDS ORDERED: KETOROLAC 30 MG/ML INJ IV PRN (03:56)
[2018-10-24] MEDS ORDERED: MORPHINE 4 MG/ML SYR IV PRN (03:56)
[2018-10-24] MEDS ORDERED: Ringers Lactate 1,000 ML IV SCH (04:00)
[2018-10-24] MEDS ORDERED: D5LR 1,000 ML IV SCH (04:00)
[2018-10-24] MEDS ORDERED: D5 0.45 NS 1,000 ML IV SCH (04:00)
[2018-10-24 05:03] VITALS: O2SAT 99
--- NOTE | 2018-10-24 06:11 | PREOPHP ---
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 Thereafter, her quantitative hCG was in the 32 0 range, but subsequently started dropping. It has gone into the 150 then to 126 range, and now into the 70 range. Now, the patient started having discomfort, notified her doctor. They got more level s, but gave her Tylenol No. 3 for the discomfort. There has been really no bleeding, but she said th e pain has just gotten progressively worse on the left lower quadrant area. Patient denies any past history of colitis, diverticulitis, or any other problems of that nature. She has had 2 surgeries on the right ovary for cyst. She has had gallbladder surgery and a D and C for a failed . Pe lvic exam by the ER doctor; the patient described as not extremely painful. The patient does not hav e peritoneal signs. Ultrasound demonstrates a 5 mm cystic lesion on the fundal area of the uterus, b ut no fluid in the pelvis, no obvious tubal problems or ovarian problems. The patient has been given morphine and fentanyl. The fentanyl, she says, alleviated most of the discomfort, but she is still uncomfortable. We have discussed options and decided to put the patient in the hospital for observat ion for the next few hours. We will give her some Toradol, any inflammatory type, and see if that he lps any. She has had the surgery from Dr. Gardiner, so if she continues to have discomfort, we decid ed to go with laparoscopy. We will get Dr. Gardiner involving; she is not, kind of, going to get a eneral surgeon involved. Patient says that she would rather avoid surgery if possible and I agree. Methotrexate has been discussed, and in the morning, we will bring this up again. Her IVF doctor encinas s not think she is a candidate for methotrexate, although I am not sure exactly why; probably because of the pain level, but certainly, there is no large mass, there is no free fluid, there is no heart beat, so I think she probably be, under normal circumstances, a perfect candidate for methotrexate. In any event, we will see what she does in the next few hours, but at this point, she is quite stable . Family History: Noncontributory. Allergies: SHE HAS NO ALLERGIES. Physical Examination: HEENT: Clear. Pupils equal, round, reactive to light and accommodation. Conjunctivae well perfused . No oral, lingual, or buccal lesions. Chest and lungs: Grossly normal. Breasts: Not done. Pelvic: Deferred as Dr. Prather has already done it. Extremities: Clear. Assessment And Plan: Basically healthy female with suspected extrauterine gestation, not ruptured at this point. We will admit for observation and possible surgical or medical intervention. DAVI/WALTER Voice ID: [id number]
[2018-10-24 06:54] LABS: Absolute Lymphocytes (CBC) 3.6 K/uL (0.7-4.9); Basophils % 0.6 % (0-1.3); Lymphocytes % 35.1 % (15.3-44.8); MPV 8.7 fL (7.6-11.3); RBC Red Blood Cell Count 3.74 M/uL (3.86-4.86)
[2018-10-24 08:08] VITALS: BP 104/69; TEMP 98.3
[2018-10-24 10:44] VITALS: BMI 26.2
--- NOTE | 2018-10-27 09:40 | PN ---
Hospital Course: The patient states that for the first time weeks she is not having any pain after w e gave her Toradol. Discussion about options again, her HCG level is now down to 60 and we have deci ded to let her ambulate and if she ambulates well, keep her for another few hours and then if she con tinues do well start her on 800 mg of Motrin q.8 hours as needed until the problem resolves on its ow n. Methotrexate again discussed this morning as well as surgical intervention discussed. I think ester mchugh has chosen the correct course of expectant management, especially since she is not having any p ain, there does not seem to be any kind of roman to do any surgery at this point certainly and I think that expectant management in view of the fact that the HCG levels are falling so rapidly is the way to go as well as the fact that there is nothing seen on ultrasound in the pelvis that would indicate immediate surgical intervention being necessary. Patient knows that if she feels better today she ca n be dismissed and then she can even go to the [place] to see her fertility doctor if she so choose s, but things seem to be cooling down at this point and I think continued expected management would b e the way to go. DAVI/WALTER Voice ID: [id number] Report ID: [id number]
[2018-10-28 18:57] LABS: C.trachomatis RNA,TMA Not Detected (Not Detected)
== END 2018-10-24 10:12 | disposition home or self-care (01) ==
LOC: ER 20:33 → ERHOLD 10-24 03:30 → 2ND-WC 10-24 03:51
PROVIDERS: ADMIT Specialist; ATTEND Specialist
DX: O26.891 Other specified pregnancy related conditions, first trimester (principal)
CPT/HCPCS: 85025 ×2; 80048; 36415; 86900 ×2; 86850; 81025; 86901 ×2; 87210; 84702 ×2; 81003; 87590; 87490; 76817; 96375; 96374; 99285; J3010; J2405; G0378 ×2

== ENCOUNTER 2024-02-06 20:40 | Emergency (ER) | payer BC, OTHER ==
--- OUTSIDE RECORDS SUMMARY | 2024-02-06 20:44 | XMS REPORT | Continuity of Care Document ---
Author Name Unknown Address [address] [facility] [place] [address] [facility] thconnect Address [address] [facility] [place] [address] Care Team Providers Care Product Director Name Role Phone [email or web address] Attending Clinician UnavailIsabela Woody Attending Clinician Un available [email or web address]_S Admitting Clinician Unavaila Tom Pretty Admitting Clinician Unavailable Payers Payer Name Policy Type Policy Number Effective Date Expirati on Date Source [place] [id number] 2022 00:00:00 Problems Condition Name Condition Details Condition Category Status Onset Date Resolution Date Last Treatment Date Treating Clinician Comments Source Hypothyroi dism Hypothyroi dism Problem Active 10-02 00:00: 00 [facility] Depressive disorder Depressive Disorder Problem Active 10-02 00:00: 00 [facility] Endometrio sis of pelvis Endometrio sis of Pelvis Problem Active 10-02 00:00: 00 [facility] Irregular intermenst rual bleeding Irregular Intermenst rual Bleeding Problem Active 10-02 00:00: 00 [facility] Menopausal and postmenopa usal disorders Menopausal and Postmenopa usal Disorders Problem Active 10-02 00:00: 00 [facility] Pelvic and perineal pain Pelvic and Perineal Pain Problem Active 10-02 00:00: 00 [facility] Inconclusi ve mammograph y finding Inconclusi ve Mammograph y Finding Problem Active 0 5-23 00:00: 00 [facility] Abnormal findings on diagnostic imaging of breast Abnormal Findings on Diagnostic Imaging of Breast Problem Active 0 5-23 00:00: 00 [facility] Screening mammograph y Screening Mammograph y Problem Active 0 4-17 00:00: 00 [facility] Intrauteri ne device check Intrauteri ne Device Check Problem Active 2021-03 0- 00:00: 00 [facility] Menopause present Menopause Present Problem Active 2021-03 0- 00:00: 00 [facility] Leukocytos is Leukocytos is Problem Active 9- 00:00: 00 [facility] Polymenorr hea Polymenorr hea Problem Active 9- 00:00: 00 [facility] Excessive menstruati on with irregular cycle Excessive Menstruati on with Irregular Cycle Problem Active 9 00:00: 00 [facility] Insertion of intrauteri ne contracept chencho device Insertion of Intrauteri ne Contracept chencho Device Problem Active 9-19 00:00: 00 [facility] Endometrio sis of pelvic peritoneum Endometrio sis of Pelvic Peritoneum Problem Active 0 2-02 00:00: 00 [facility] Endometrio sis of rectovagin al septum and vagina Endometrio sis of Rectovagin al Septum and Vagina Problem Active 0 1-28 00:00: 00 [facility] Endometrio sis of ovary Endometrio sis of Ovary Problem Active 0 1-28 00:00: 00 [facility] Endometrio sis of fallopian tube Endometrio sis of Fallopian Tube Problem Active 0 1-28 00:00: 00 [facility] History of tubal ligation History of Tubal Ligation Problem Active 2020-03 1-10 00:00: 00 [facility] Salpingiti s Salpingiti s Problem Active 0 8-08 00:00: 00 [facility] Female infertilit y Female Infertilit y Problem Active 0 8-08 00:00: 00 [facility] Recurrent miscarriag e Recurrent Miscarriag e Problem Active 0 8-08 00:00: 00 [facility] Adjustment disorder with depressed mood Adjustment Disorder with Depressed Mood Problem Active 08-30 00:00: 00 [facility] Missed miscarriag e Missed Miscarriag e Problem Active 08-30 00:00: 00 [facility] Miscarriag e without complicati on Miscarriag e without Complicati on Problem Active 11-11 00:00: 00 [facility] Hyperlipid emia Hyperlipid emia Problem Active 10-17 00:00: 00 [facility] Overweight Overweight Problem Active 10-17 00:00: 00 [facility] Gynecologi julia examinatio n abnormal Gynecologi julia Examinatio n Abnormal Problem Active 09-25 00:00: 00 [facility] Dysmenorrh ea Dysmenorrh ea Problem Active 08-11 00:00: 00 [facility] Endometrio sis of uterus Endometrio sis of Uterus Problem Active 2014-03 00:00: 00 [facility] Excessive and frequent menstruati on Excessive and Frequent Menstruati on Problem Active 2014-03 00:00: 00 [facility] Allergies, Adverse Reactions, Alerts Allergy Name Allergy Type Status Severity Reaction(s) Onset Date Inactive Date Treating Clinician Comments Source No Known Allergie s DA Active U 03-13 00:00: 00 [facility] Social History Smoking Status Start Date Stop Date Source Heavy Tobacco Smoker [facility] Medications Ordered Medication Name Filled Medication Name Start Date Stop Date Current Medication? Ordering Clinician Indication Dosage Frequency Signature (SIG) Comments Components Source Liletta 20.4 mcg/24 hrs (8 yrs) 52 mg intrauterin e device Take by intrauterin e route. Liletta 20.4 mcg/24 hrs (8 yrs) 52 mg intrauterin e device Take by intrauterin e route. 11-17 00:00: 00 No Liletta 20.4 mcg/24 hrs (8 yrs) 52 mg intrauteri ne device Take by intrauteri ne route. [facility] Calcium + Vitamin D Calcium + Vitamin D No Calcium + Vitamin D [facility] estradiol 0.0375 mg/24 hr semiweekly transdermal patch Apply 1 patch twice a week by transdermal route as directed for 90 days. estradiol 0.0375 mg/24 hr semiweekly transdermal patch Apply 1 patch twice a week by transdermal route as directed for 90 days. No 1patch( es) Q3.5D estradiol 0.0375 mg/24 hr semiweekly transderma l patch Apply 1 patch twice a week by transderma l route as directed for 90 days. [facility] levothyroxi ne 100 mcg tablet TAKE ONE (1) TABLET(S) BY MOUTH DAILY IN THE MORNING. levothyroxi ne 100 mcg tablet TAKE ONE (1) TABLET(S) BY MOUTH DAILY IN THE MORNING. No levothyrox ine 100 mcg tablet TAKE ONE (1) TABLET(S) BY MOUTH DAILY IN THE MORNING. [facility] Myfembree 40 mg-1 mg-0.5 mg tablet Take 1 tablet every day by oral route for 30 days. Myfembree 40 mg-1 mg-0.5 mg tablet Take 1 tablet every day by oral route for 30 days. No 1 Q1D Myfembree 40 mg-1 mg-0.5 mg tablet Take 1 tablet every day by oral route for 30 days. [facility] Vital Signs Vital Name Observation Time Observation Value Comments S ource BMI (Body Mass Index) 2023-04-18 00:00:00 29.4 kg/m2 [facility] Body Weight 2023-04-18 00:00:00 205 [lb_av] [facility] Height 2023-04-18 00:00:00 70 [in_i] [facility] Procedures Procedure Date / Time Performed Performing Clinicia n Source Total Salpingectomy 2019-10-01 00:00:00 [facility] Dilation and Curettage 2016-09-25 00:00:00 [facility] Hysteroscopy 2012-03-04 00:00:00 [facility] Laparoscopy 2006-03-04 00:00:00 [facility] M edical Encounters Start Date/Time End Date/Time Encounter Type Admission Type Attending Clinicians Care Facility Care Department Encounter ID Source 2023-06-07 00:00:00 2023-06-07 00:00:00 Outpatient [email or web address]_Ka diyala_S [facility] [id number] [facility] 2023-05-10 00:00:00 2023-05-10 00:00:00 Outpatient GC_GCBZW_Ka diyala_S [facility] [id number] [facility] 2023-04-18 00:00:00 2023-04-18 00:00:00 Karolina Pereira, RESIN COATER: [address], [place] [address], [place] [address] , Ph. [facility] - GC_GCBZW_[facility]* [id number] [facility] 2023-04-17 00:00:00 2023-04-17 00:00:00 Outpatient GC_GCBZW_Ka diyala_S PRIV PRIV [id number] [facility] 2023-02-21 00:00:00 2023-02-21 00:00:00 Outpatient GC_GCBZW_Ka diyala_S PRIV PRIV [id number] [facility] 2023-01-24 00:00:00 2023-01-24 00:00:00 Outpatient GC_GCBZW_Ka diyala_S PRIV PRIV [id number] [facility] 2022-12-27 00:00:00 2022-12-27 00:00:00 Outpatient GC_GCBZW_Ka diyala_S PRIV PRIV [id number] [facility] 2022-11-29 00:00:00 2022-11-29 00:00:00 Outpatient GC_GCBZW_Ka diyala_S PRIV PRIV [id number] [facility] 2022-11-01 00:00:00 2022-11-01 00:00:00 Outpatient GC_GCBZW_Ka diyala_S PRIV PRIV [id number] [facility] 2022-11-01 00:00:00 2022-11-01 00:00:00 Outpatient GC_GCBZW_Ka diyala_S PRIV PRIV [id number] [facility] 2022-10-02 00:00:00 2022-10-02 00:00:00 Outpatient GC_GCBZW_Ka diyala_S PRIV PRIV [id number] [facility] 2022-10-02 00:00:00 2022-10-02 00:00:00 Outpatient GC_GCBZW_Ka diyala_S [facility] [id number] [facility] 2022-10-02 00:00:00 2022-10-02 00:00:00 Outpatient GC_GCBZW_Ka diyala_S [facility] [id number] [facility] 2021-03-16 08:21:00 2021-03-16 08:21:00 Inpatient Isabela Ley [facility] DAYS [id number] [facility] Results Test Description Test Time Test Comments Results Resul t Comments Source BREAST ULTRASOUND BILATERAL 2022-07-24 14:12:27 Name: Randolph : 1980 Sex: F - BREAST ULTRASOUND BILATERALCOMPLETE ULTRASOUND OF BOTH BREASTS AND AXILLA: 07/24/2022LINICAL: Family history of breast cancer, Recall from screening bilateral breast. Comparison is made to exam dated 07/19/2022 mammogram - [facility]-. Color flow and real-time ultrasound of both breasts four quadrants, retroareolar, and axilla regions and clinical breast exam performed. Escobar scale images of the real-time examination were reviewed. No significant abnormalities were seen sonographically in either axilla. Benign cysts and lymph nodes seen that correspond to the mammographic findings. No solid masses. IMPRESSION: BENIGN There is no sonographic evidence of malignancy. Resume annual screening mammography in one year. (07/25/2023) Cris Feng M.D. dm/:07/24/2022 14:12:27 copy to: Giulia Gardiner M.D., ph: [phone], fax: [phone] Technologist: Guera LOVE, [facility]-FWletter sent: BIRADS 1-2 Normal Ultrasound BI-RADS: 2 Benign SCR MAMM BILATERAL KARISHMA CAD DIGITAL 2022-07-23 10:05:50 Name: Randolph : 1980 Sex: F - SCR MAMM BILATERAL KARISHMA CAD DIGITALBILATERAL [facility] DIGITAL SCREENING MAMMOGRAM 3D/2D WITH CAD: 07/19/2022LINICAL: Asymptomatic. Family history of breast cancer. Digital breast tomosynthesis was performed in addition to routine CC and MLO views. Current mammographic images were evaluated by [employer] CAD (computer-aided detection) software. No prior exams were available for comparison. The tissue of both breasts is predominantly fatty. Multiple bilateral oval, circumscribed, low-density benign-appearing masses. Intramammary lymph node in the right upper outer quadrant, benign. No suspicious architectural distortion, malignant type calcification, or lymph node abnormality detected. IMPRESSION: INCOMPLETE: ADDITIONAL IMAGING EVALUATION NEEDEDMultiple bilateral oval, circumscribed, low-density benign-appearing masses. Initial evaluation with ultrasound and possible spot compression Tomosynthesis views is recommended at this time.Vlad Arora M.D. ss/:07/23/2022 10:05:50 Entry: - 07/23/2022 14:39:50copy to: Giulia Gardiner M.D., ph: [phone], fax: [phone] Technologist: Marge LOVE, [facility]-FWletter sent: Additional Imaging Mammogram BI-RADS: 0 Incomplete: Additional Imaging Evaluation Needed CBC W/AUTO [id number] 17:12:00* Test Item Value Reference Range Interpretation Comme nts WHITE BLOOD CELL (test code = WBC) 11.2 K/mm3 3.5-11.0 H RED BLOOD CELL (test code = RBC) 4.90 M/mm3 4.70-6.10 N HEMOGLOBIN (test code = HGB) 14.4 G/DL 10.4-14.9 N HEMATOCRIT (test code = HCT) 43.9 % 31.5-44.1 N MEAN CELL VOLUME (test code = MCV) 89.6 Fl 84.5-98.6 N MEAN CELL HGB (test code = MCH) 29.4 pg 27.0-34.2 N MEAN CELL HGB CONCETRATION (test code = MCHC) 32.8 G/DL 31.5-34.0 N RED CELL DISTRIBUTION WIDTH (test code = RDW) 12.4 SD 11.5-14.5 N PLATELET COUNT (test code = PLT) 421 K/mm3 150-450 N MEAN PLATELET VOLUME (test c ode = MPV) 10.10 fL 7.0-10.5 N NEUTROPHIL % (test code = NT%) 68.0 % 40-76 N IMMATURE GRANULOCYTE % (test code = IG%) 0.3 % 0.0-5.0 N LYMPHOCYTE % (test code = LY%) 25.0 % 20.5-51.1 N MONOCYTE % (test code = MO%) 5.1 % 1.7-9.3 N EOSINOPHIL % (test code = EO%) 0.7 % 0.0-6.0 N BASOPHIL % (test code = BA%) 0.9 % 0.0-2.0 N NUCLEATED RBC % (test code = NRBC%) 0.0 /100WBC% 0.0-1.0 N NEUTROPHIL # (test code = NT#) 7.7 K/mm3 1.8-7.6 H IMMATURE GRANULOCYTE # (test code = IG#) 0.03 x10 3/uL 0.00-0.03 N LYMPHOCYTE # (test code = LY#) 2.8 K/mm3 0.6-3.2 N MONOCYTE # (test code = MO#) 0.6 K/mm3 0.3-1.1 N EOSINOPHIL # (test code = EO#) 0.1 K/mm3 0.0-0.4 N BASOPHIL # (test code = BA#) 0.1 K/mm3 0.0-0.1 N NUCLEATED RBC # (test code = NRBC#) 0.0 K/mm3 0.0-0.1 N MANUAL DIFF REQUIRED (test c ode = MDIFF) NO DIFF/SCN CRITERIA COVID 19 INHOUSE [id number] 16:58:00* Test Item Value Reference Range Interpretation Comme nts COVID 19 INHOUSE AG (test code = [id number]) NEGATIVE Negative Per date night caregiver , negative results should be treated aspresumptive and, if inconsistent with clinical signs andsymptoms or necessary for patient management, should betested with an alternative molecular assay. Negative resultsdo not preclude SARS-CoV-2 infection and should not be usedas the sole basis for patient management decisions. Negative results should be considered in the context of apatient's recent exposures, history, presence of clinicalsigns and symptoms consistent with COVID-19. HCG SERUM [id number] 16:45:00* Test Item Value Reference Range Interpretation Comme nts HCG SERUM QUAL (test code = HCGQL) SERUM NEGATIVE SCREEN NEGATIVE URINALYSIS [id number] 16:41:00* Test Item Value Reference Range Interpretation Comme nts UA GLUCOSE DIPSTICK (test code = DGLUU) NEGATIVE mg/dL NEG UA BILIRUBIN DIPSTICK (test code = BILU) NEGATIVE mg/dL NEG UA KETONE DIPSTICK (test code = KETU) NEGATIVE mg/dL NEG UA SPECIFIC GRAVITY (test code = SGU) <=1.005 SG 1.005-1.030 UA BLOOD DIPSTICK (test code = HOWARD) NEGATIVE mg/DL NEG UA PH DIPSTICK (test code = BIGG) 7.0 pH UNITS 5.0-7.0 UA PROTEIN DIPSTICK (test code = PROU) NEGATIVE mg/dL NEG UA UROBILINIOGEN DIPSTICK (test code = URO) 0.2 mg/dL <2.0 UA NITRITE DIPSTICK (test code = IDANIA) NEGATIVE SCREEN NEG UA LEUKOCYTE ESTERASE DIPSTICK (test code = LEUU) NEGATIVE Leuk/mcL NEGATIVE Urine Specimen Type: Clean Catch Notes Date/Time Note Provider Source 2021-03-17 20:53:00 [id number] [facility] [id number] [place] [id number] PATIENT NAME: RANDOLPH CARPENTER ADMIT DATE: 03/16/21 ACCOUNT NO: [id number] ROOM NO: AGE: 40 REPORT TYPE: OPERATIVE REPORT SEX: F ADMITTING PHYSICIAN: ATTENDING PHYSICIAN: Isabela Gardiner MD OPERATION DATE: 03/16/2021 PREOPERATIVE DIAGNOSES: Pelvic pain, history of endometriosis. POSTOPERATIVE DIAGNOSES: Pelvic pain and stage IV endometriosis, right ovarian endometrioma, right hydrosalpinx, sigmoid adhesions to the right ovary and left ovarian adhesions to the tube and the posterior wall of the uterus (bilateral ovarian adhesions). PROCEDURES PERFORMED: 1. Laparoscopy, bilateral salpingectomy. 2. Lysis of adhesions of the sigmoid to the right ovary and the sidewall and posterior broad ligament and uterosacral ligament, drainage of right ovarian endometriotic cyst, bilateral ovariolysis and extensive endometriosis excision. SURGEON: Isabela Gardiner MD HADOOP SOFTWARE ENGINEER: Radha Weber. ANESTHESIA: General endotracheal. COMPLICATIONS: No complications. ESTIMATED BLOOD LOSS: 50 mL. SPECIMENS: Bilateral tubes and multiple specimens of endometriosis. DRAINS: None. URINE OUTPUT: 75 mL. APPROACH: Laparoscopic. CONDITION: The patient's condition is stable. FINDINGS: Extensive endometriosis was noted. Bilateral ovarian adhesions were noted. The left ovarian adhesions were to the tube and the posterior broad ligament as well as to the endometriosis arising from the uterosacral ligament, which were well and the left ovary was free at the end of the dissection. The right ovarian endometrioma was noted that it was drained to prevent any further reduction in the ovarian volume, which could decrease ovarian reserve for this patient who desires to conceive and is under the care PATIENT NAME: RANDOLPH CARPENTER of an infertility specialist. The right tube significantly dilated (hydrosalpinx). Sigmoid adhesions to the posterior wall of the uterus and right ovary and sidewall were all then detached and the ovary was freed. The cyst wall left open after drainage without any suturing. Cul-de-sac obliteration was noted and this was released by dissecting the rectosigmoid off the posterior cul-de-sac where there were significant adhesions and the utero-ovarian ligament on the right side had to be cauterized significantly after the tube was removed from here and there was bleeding, but very minimal cautery to the ovary itself on both sides. INDICATIONS: The patient is a 40-year-old female who presented with recurrent pelvic pain, who has had multiple cycles of IVF with spontaneous first trimester miscarriages and difficulty for conception. Her pelvic pain has been progressively getting worse. She has had prior endometriosis excision by me several years ago and then the tomography technologist surgery for evaluation of recurrent endometriosis. There was diagnosis of right hydrosalpinx. This has been tolerable up until recently where the pain has become so significant that she is needing urgent care when the pain exacerbates. After discussing the patient and her GONZALES, plan was made to remove the tubes on both sides as she has definitely been treated with IVF. This would not change significant management plan, but would alleviate her pain to a significant extent and impact her fecundity with removal of the hydrosalpinx. The patient also understood that there could be endometriosis that all efforts will be taken to preserve the ovaries as they are. No plan to excise endometriomas if they were noted to prevent any reduction of ovarian reserve. PROCEDURE IN DETAIL: After informed consent, she was taken back to the OR, placed in supine fashion on the operating table. General anesthesia was given. She was placed in dorsal lithotomy position using Kan stirrups. Abdomen, vulva, vagina, and perineum prepped and draped in sterile fashion. Hernandez was placed to drain the bladder. A timeout was done. SCDs were started and a uterine manipulator was introduced into the uterus without any problems and the vaginal area was draped. A 1 cm infraumbilical incision made with a scalpel using open laparoscopy technique. Fascia was incised and peritoneum entered bluntly. S retractors were placed. After introducing the Glo and adequate insufflation, site of entry was checked and was unremarkable. Upper abdominal surfaces unremarkable as well. Appendix unremarkable. The patient was placed in T-gonzales and pelvic assessment was done with left lower quadrant, suprapubic and right lower quadrant 5 ports. Significant other endometriosis seen on the anterior cul-de-sac on the bladder peritoneum, definitely more than 3 implants here, two of which could be excised without any problems and the third one could need partial entry into the detrusor muscle in order to excise the entire implant, which was not found to be done at this time, so cauterization of the implant was done, which to be done in a significant fashion. After looking at her posterior aspect, the right ovary was adhered to the tube and to the posterior broad ligament and the lateral aspect of the uterus. There was significant endometriosis along the round ligament, then anterior broad ligament, then left uterosacral ligament had endometriosis with ovary and tube PATIENT NAME: RANDOLPH CARPENTER were attached to, so plan was to release the tube and ovary and then excise the tube. Lateral peritoneum parallel to the IP was opened up and dissection was carried along the mesosalpinx opening up this area. Then, adhesions were taken down from the medial aspect of the uterus and posterior broad ligament and from the uterosacral ligament, then the tube was excised in its entirety and handed out. Then, endometrial implants on the uterosacral ligament were excised circumferentially without leaving any implants here. Ureter was significantly distant from this, at least a centimeter away, and this was protected by dissecting and opening up the space between the ureter and the uterosacral ligament. The right ovary was then evaluated. There was endometrioma and a significant hydrosalpinx and all the adhesions to the sigmoid colon, so the adhesions of the sigmoid were gently taken down with push spread technique and sharp dissection from the ovary and the tube. The tip of the suction catheter was used to take down these adhesions, some of the epiploica were also attached. These were taken down without any problems or significant bleeding. Then, the uterosacral endometriosis was also attached to the sigmoid and these adhesions were taken down, the sigmoid down all the way to the level of the obliterated cul-de-sac. Then, medial adhesions to the right lateral wall were taken down with blunt dissection using the tip of the suction and once the entire colon was released, then the tube and the ovary were well visualized. The tubal adhesions and the ovarian adhesions were gently . The endometrioma was drained at this point, then the ovary was from the uterosacral and the posterior peritoneum. The utero-ovarian ligament was also impregnated with endometriotic implants; however, these were very difficult to excise without loss of ovarian blood supply and also potential loss of ovarian tissue as this was significantly contracted and adhered together, so dissection was performed to open up the area between the round ligament and the infundibulopelvic ligament and the right tube was dissected open and from the cornual end, this was dissected all the way laterally and from the fimbriated end, once it was released from the ovary, it was completely removed and pulled out through the umbilical port. Once this was handed off for permanent pathology, then the ovarian endometrioma was suctioned and drained and thorough irrigation was done. Then, once the ovary was released from the sidewall, the cul-de-sac obliteration was taken down with sharp and blunt dissections the rectum from the posterior vaginal wall. The endometriosis in the anterior broad ligament was taken down and excised completely and the bladder implants x3 were removed and then the third one was cauterized as planned. There were anterior abdominal wall implants that were taken out from the right anterior wall and the left anterior wall. No implant at the level of the appendix or upper abdominal surfaces. The entire area was thoroughly irrigated and suctioned. Both ureters were traced from their courses and did not have any electrical, mechanical or thermal injury to them. the distal part of the right ureter still was pulled medially towards the uterosacral ligament and the uterine artery. So, if this patient had a hysterectomy, plan to place a right PATIENT NAME: RANDOLPH CARPENTER ureteric stent or possibly bilateral ureteric stents to protect the ureters and potentially recognize injury if there was one for the future. After thorough suction and irrigation, there was good hemostasis. Bipolar cautery was used at the utero-ovarian ligament on the right side. Once this was completely hemostatic, then the trocars were removed. Instrument, needle, and sponge counts were done. After gas was desufflated, abdominal fascial incision at the umbilicus was closed with the help of the tagged 0 Vicryl sutures tied to each other and all skin incisions closed with the help of 4-0 Vicryl interrupted sutures. The uterine manipulator and the Hernandez were removed. All the skin sites were injected with Marcaine at the end of the case and the beginning of the case same at the fascial level incisions. The patient tolerated the procedure well. All the instrument and sponge count at the final count were correct. ESTIMATED BLOOD LOSS: 50 mL. All the findings explained to her sister. Plan to see her back in 1 week. Dictated By: Isabela Gardiner MD WT: OP:NAHID/MELVIN/GEORGE Conf#: [id number]/DID#: [id number] Authenticated and Edited by Isabela Gardiner MD On 04/03/21 10:14:52 PM at 1017 PATIENT NAME: RANDOLPH CARPENTER [facility] 2021-03-16 14:18:00 [facility]) Brief Op Note REPORT#:[id number] REPORT STATUS: Signed DATE:03/16/21 TIME:1418 PATIENT: RANDOLPH CARPENTER UNIT #: [id number] ROOM/BED: : 82 AGE: 40 SEX: F ATTEND: Isabela Gardiner MD [facility] AUTHOR: Isabela Gardiner MD * ALL edits or amendments must be made on the electronic/computer document * Op/Inv Proc Note - Brief Pre-procedure diagnosis: pelvic pain, h/o endometriosis Post-procedure diagnosis: same as pre procedure dx, Stage 4 endometriosis, rt ovarian endometrioma, right hydrosalpinx, sigmoid adhesions Procedures performed: laparoscopy bilateral salpingectomy, extensive endometriosis excision, lysis of sigmoid adhesions, drainage of right ovarian endometriotic cyst, bilateral ovariolysis Primary Surgeon: gianluca Associate Professor Of Sociology(s): radha romero Anesthesia: general anesthesia Findings: extensive endo, bilateral ovarian adhesions, rt ov cyst endometrioma, sigmoid adhesions to posterior wall of uterus rt ovary and rt lat wall, rt hydrosalpinx, CDS obliteration Complications: none Estimated blood loss in ml's: 50 Specimens removed/altered: none (bilateral tubes, endometriosis) Drain(s): None Urine output: 75 Approach: laparoscopic Wound class: clean Disposition: plan to D/C home at 1424 RPT #: [id number] END OF REPORT [facility]
[2024-02-06] MEDS ORDERED: PROMETHAZINE INJ 25 MG/ML AMP ONE (22:23)
[2024-02-06] MEDS ORDERED: NA CHLORIDE 0.9% 1,000 ML ONE (22:24)
[2024-02-06 22:28] LABS: Absolute Lymphocytes (CBC) 0.5 K/uL (0.7-4.9); Absolute Monocytes 0.5 K/uL (0.1-1.3); Absolute Neutrophil 20.4 K/uL (1.8-8.0); Basophils % 0.2 % (0-1.3); Eosinophils % 0.2 % (0-4.4); Hematocrit 43.4 % (36.0-45.0); Hemoglobin 14.4 g/dL (12.0-15.0); Lymphocytes % 2.3 % (15.3-44.8); MCH 29.8 pg (27.0-35.0); MCHC 33.1 g/dL (32.0-36.0); MPV 8.6 fL (7.6-11.3); Monocytes % 2.5 % (3.3-12.3); Neutrophils % 94.8 % (41.7-73.7); Platelets 367 thou/uL (152-406); RBC Red Blood Cell Count 4.83 M/uL (3.86-4.86); Red Cell Distribution Width 13.6 % (12.1-15.2)
[2024-02-06 22:45] LABS: Albumin 2.9 g/dL (3.4-5.0); Albumin/Globulin Ratio 0.7 (1.1-1.8); Anion Gap 11.7 mEq/L (5.0-15.0); Bilirubin Total 0.6 mg/dL (0.2-1.0); Globulin 4.3 g/dL (2.3-3.5); Protein, Total 7.2 g/dL (6.4-8.2)
[2024-02-06 22:50] LABS: Potassium 4.7 mEq/L (3.5-5.1)
[2024-02-06 23:37] LABS: Band Neutrophils 26 % (0-1); Differential Total Cells Count 100; Lymphocytes 2 % (15-42); Monocytes 1 % (0-10); Segmented Neutrophils 71 % (40-80)
[2024-02-06 23:38] LABS: Blood Morphology Comment NOT SEEN (NOT SEEN); Platelet Estimate ADEQ
[2024-02-06 23:40] LABS: Specific Gravity > 1.030 (1.005-1.030); Sqamous Epithelial <5 /HPF (None Seen); Urine Bacteria <20 /HPF (<20); Urine Bilirubin NEGATIVE (Negative); Urine Blood Negative (Negative); Urine Clarity Turbid (Clear); Urine Color Yellow (Yellow); Urine Culture Reflex Order NOT NEEDED; Urine Glucose NEGATIVE (Negative); Urine Ketones 1+ (Negative); Urine Micro Reflex YN NO BILL MICROSCOPIC; Urine Mucus 2+ /HPF (None Seen); Urine Nitrite NEGATIVE (Negative); Urine Protein TRACE (Negative); Urine RBC None Seen /HPF (None Seen); Urine Urobilinogen Normal (Normal); Urine pH 5.5 (5.0-7.0)
[2024-02-06 23:49] LABS: SARS-CoV-2 Antigen CONTROL BLUE LINE VIS/BG OK; SARS-CoV-2 Antigen Rapid Res Negative (Negative)
--- NOTE | 2024-02-07 00:11 | EDPHYS ---
Physician Documentation [facility] Name: Trish Arambula Age: 43 yrs Sex: Female : 1980 Arrival Date: 02/06/2024 Time: 20:40 Bed 20 Private MD: ED Physician Bryce Schroeder HPI: 02/05 22:19 This 43 yrs old Female presents to ER via Ambulatory with complaints of EST 13 WEEKS sb4 GESTATION, Nausea/Vomiting/Diarrhea. 22:19 patient states that a stomach bug has been going around her household. she has been sb4 trying to isolate herself but this evening she started experiencing nausea, vomiting, and diarrhea. she is concerned because she is approx 13 weeks via IVF, her 5th attempt. her OB instructed her to come to the ED to prevent dehydration. denies any pelvic pain, vaginal discharge, or vaginal bleeding. 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 - Infectious Disease History:: Denies. - Social history:: Smoking status: Patient denies any tobacco usage or history of. ROS: 22:19 Constitutional: Negative for fever, chills, and weight loss, sb4 22:19 Abdomen/GI: Positive for nausea, vomiting, and diarrhea, 22:19 All other systems are negative, Exam: 22:19 Head/Face: Normocephalic, atraumatic. Eyes: Extra-ocular motions intact. Periorbital sb4 areas with no swelling, redness, or edema. ENT: Mucous membranes moist. Cardiovascular: Regular rate and rhythm with a normal S1 and S2. Respiratory: No increased work of breathing, no retractions or nasal flaring. Abdomen/GI: Soft, non-tender, no distension. Skin: Warm, dry with normal turgor. Normal color with no rashes, no lesions, and no evidence of cellulitis. 22:19 Constitutional: The patient appears alert, awake, anxious, Vital Signs: 21:07 BP 122 / 97; Pulse 105; Resp 18; Temp 97.1(TE); Pulse Ox 99% on R/A; Weight 93.89 kg; cm10 Height 5 ft. 10 in. ; Pain 3/10; 22:34 BP 127 / 94; Pulse 90; Resp 20; Pulse Ox 99% on R/A; kj2 02/06 00:03 BP 119 / 86; Pulse 80; Resp 18; Temp 98.2; Pulse Ox 100% on R/A; kj2 02:00 BP 124 / 80; Pulse 82; Resp 18; Temp 97.9; Pulse Ox 100% on R/A; kj2 02/05 21:07 Body Mass Index 29.70 (93.89 kg, 177.8 cm) cm10 02/05 21:07 Pain Scale: Adult cm10 MDM: 02/05 21:12 Medical Screening Exam initiated sb4 02/06 00:09 Data reviewed: vital signs, nurses notes, lab test result(s), radiologic studies, I sb4 have discussed the patient's presentation/case with the attending Emergency Department Physician;. Counseling: I had a detailed discussion with the patient and/or guardian regarding the historical points, exam findings, and any diagnostic results supporting the discharge/admit diagnosis, lab results, the need to transfer to another facility, [facility] does not immediately have the required specialist. 00:13 ED course: vomiting has stopped, nausea and diarrhea have persisted. she has a 20k sb4 white count with 26 bands. urine is negative for infection. no fever. initially tachycardic. will attempt transfer for OB observation and further workup. 02/05 21:31 Order name: CBC with Diff; Complete Time: 23:44 sb4 02/05 21:31 Order name: CMP; Complete Time: 22:51 sb4 02/05 21:31 Order name: Lipase; Complete Time: 22:51 sb4 02/05 22:31 Order name: Manual Differential; Complete Time: 23:44 EDMS 02/05 22:52 Order name: UAM; Complete Time: 23:44 sb4 02/05 22:52 Order name: SARS RAPID; Complete Time: 23:49 sb4 02/05 22:52 Order name: Flu; Complete Time: 23:49 sb4 02/06 00:08 Order name: Blood Culture Adult (2) sb4 02/06 00:08 Order name: Lactate w/ 2H reflex if indic.; Complete Time: 01:17 sb4 02/06 00:08 Order name: Protime (+inr); Complete Time: 13:00 sb4 02/06 00:08 Order name: Ptt, Activated; Complete Time: 13:00 sb4 02/05 21:31 Order name: IV Saline Lock; Complete Time: 22:11 sb4 02/05 21:31 Order name: Labs collected and sent; Complete Time: 22:11 sb4 02/05 23:18 Order name: PO challenge; Complete Time: 00:03 sb4 02/06 00:08 Order name: FHT's; Complete Time: 00:31 sb4 Administered Medications: 02/05 22:30 Drug: Promethazine IVP 6.25 mg IVP once Route: IVP; Site: left antecubital; kj2 02/06 00:40 Follow up: Response: No adverse reaction kj2 02/05 22:31 Drug: NS 0.9% IV 1000 ml IV at 1 bolus Per protocol; to be given as a bolus over 60 kj2 minutes Route: IV; Rate: 1 bolus; Site: left antecubital; 23:31 Follow up: IV Status: Completed infusion; IV Intake: 1000ml kj2 02/06 01:14 Drug: metoCLOPramide IVP 10 mg IVP once; over 1 to 2 minutes Route: IVP; Site: left kj2 antecubital; 01:40 Follow up: Response: No adverse reaction kj2 Disposition: 04:15 Co-signature as Attending Physician, Bryce Schroeder MD I agree with the assessment sp4 and plan of care. I reviewed the patient's care provided by the Advanced Practice Provider and agree with the diagnosis and treatment plan. Disposition Summary: 02/07/24 00:10 Transfer Ordered Notes: Transfer Location: [facility] sb4 Reason: Higher level of care sb4 Condition: Fair sb4 Problem: new sb4 Symptoms: are unchanged sb4 Accepting Physician: obgyn(02/07/24 02:15) kj2 Diagnosis - Nausea with vomiting, unspecified sb4 - Leukocytosis with bandemia sb4 - 13 weeks gestation of sb4 Forms: - Medication Reconciliation Form sb4 - SBAR form sb4 Signatures: Dispatcher [employer] EDMS Shirley Valenzuela PA-C PA-C sb4 Bryce Schroeder MD MD sp4 Saumya Barlow RN RN cm10 Nicole Solano RN RN kj2 Corrections: (The following items were deleted from the chart) 02/05 23:50 22:19 patient states that a stomach bug has been going around her household. she has sb4 been trying to isolate herself but this evening she started experiencing nausea, vomiting, and diarrhea. she is concerned because she is approx 13 weeks via IVF, her 5th attempt. her OB instructed her to come to the ED to prevent dehydration. denies any pelvic pain, vaginal discharge, or vaginal bleeding. sb4 02/06 02:15 00:10 obgyn sb4 kj2
--- NOTE | 2024-02-07 00:11 | ER ---
Nurse's Notes [facility] Name: Trish Arambula Age: 43 yrs Sex: Female : 1980 Arrival Date: 02/06/2024 Time: 20:40 Bed 20 Private MD: Diagnosis: Nausea with vomiting, unspecified;Leukocytosis with bandemia;13 weeks gestation of Presentation: 02/05 21:07 Chief complaint: Patient states: VOMITING AND DIARRHEA ONSET TODAY. PT REPORTS FAMILY cm10 MEMBERS ALSO SICK WITH SIMILAR SYMPTOMS. PT APPROXIMATELY 13 WEEKS . NO VAGINAL BLEEDING OR DISCHARGE. Coronavirus screen: Client denies travel out of the [place] in the last 14 days. Ebola Screen: Patient denies travel to an Ebola-affected area in the 21 days before illness onset. No symptoms or risks identified at this time. Initial Sepsis Screen: Does the patient meet any 2 criteria? HR > 90 bpm. Does the patient have a suspected source of infection? No. Patient's initial sepsis screen is negative. Risk Assessment: Do you want to hurt yourself or someone else? Patient reports no desire to harm self or others. Onset of symptoms was February 06, 2024. 21:07 Method Of Arrival: Ambulatory cm10 21:07 Acuity: YISSEL 3 cm10 Triage Assessment: 21:11 General: Appears in no apparent distress. uncomfortable, Behavior is calm, cooperative. cm10 Neuro: No deficits noted. Level of Consciousness is awake, alert, obeys commands, Oriented to person, place, time, situation, Appropriate for age. Respiratory: No deficits noted. Airway is patent Respiratory effort is even, unlabored, Respiratory pattern is regular, symmetrical. 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 - Infectious Disease History:: Denies. - Social history:: Smoking status: Patient denies any tobacco usage or history of. Screenin:00 [facility] ED Fall Risk Assessment (Adult) History of falling in the last 3 months, kj2 including since admission No falls in past 3 months (0 pts) Confusion or Disorientation No (0 pts) Intoxicated or Sedated No (0 pts) Impaired Gait No (0 pts) Mobility Assist Device Used No (0 pt) Altered Elimination No (0 pt) Score/Fall Risk Level 0 - 2 = Low Risk Oriented to surroundings, Hourly rounding (assess needs \T\ fall precautionary measures) done. Abuse screen: Denies threats or abuse. Denies injuries from another. Nutritional screening: No deficits noted. Tuberculosis screening: No symptoms or risk factors identified. Assessment: 22:00 General: Appears in no apparent distress. uncomfortable, Behavior is calm, cooperative. kj2 Pain: Complains of pain in abdominal. Neuro: Level of Consciousness is awake, alert, obeys commands, Oriented to person, place, time, situation. Cardiovascular: Patient's skin is warm and dry. Respiratory: Airway is patent via oral airway Respiratory effort is even, unlabored. GI: Reports diarrhea, nausea, vomiting, since this afternoon. : No signs and/or symptoms were reported regarding the genitourinary system. 22:37 Reassessment: Patient appears in no apparent distress at this time. Patient and/or kj2 family updated on plan of care and expected duration. Pain level reassessed. Patient is alert, oriented x 3, equal unlabored respirations, skin warm/dry/pink. 02/06 00:03 Reassessment: Patient appears in no apparent distress at this time. Patient and/or kj2 family updated on plan of care and expected duration. Pain level reassessed. Patient is alert, oriented x 3, equal unlabored respirations, skin warm/dry/pink. 00:32 Reassessment: HEART SOUND RATE AT 147. ha1 01:27 Reassessment: nurse to nurse report called to receiving hospital. kj2 02:05 Reassessment: Patient appears in no apparent distress at this time. Patient and/or kj2 family updated on plan of care and expected duration. Pain level reassessed. Patient is alert, oriented x 3, equal unlabored respirations, skin warm/dry/pink. Vital Signs: 12/05 21:07 BP 122 / 97; Pulse 105; Resp 18; Temp 97.1(TE); Pulse Ox 99% on R/A; Weight 93.89 kg; cm10 Height 5 ft. 10 in. ; Pain 3/10; 22:34 BP 127 / 94; Pulse 90; Resp 20; Pulse Ox 99% on R/A; kj2 02/06 00:03 BP 119 / 86; Pulse 80; Resp 18; Temp 98.2; Pulse Ox 100% on R/A; kj2 02:00 BP 124 / 80; Pulse 82; Resp 18; Temp 97.9; Pulse Ox 100% on R/A; kj2 02/05 21:07 Body Mass Index 29.70 (93.89 kg, 177.8 cm) cm10 02/05 21:07 Pain Scale: Adult cm10 ED Course: 02/05 20:43 Patient arrived in ED. jj6 20:43 Shirley Valenzuela PA-C is PHCP. sb4 20:43 Bryce Schroeder MD is Attending Physician. sb4 21:09 Triage completed. cm10 21:12 Arm band placed on right wrist. Patient placed in an exam room, on a stretcher. cm10 21:59 Nicole Solano, RN is Primary Nurse. kj2 21:59 Missed attempt(s): 20 gauge in right antecubital area. vk 22:00 Patient has correct armband on for positive identification. Call light in reach. Adult kj2 w/ patient. Provided Education on: call light. 22:11 Inserted saline lock: 20 gauge in left antecubital area, using aseptic technique. Blood kj2 collected. Flushed with 10 mL NS. 02/06 00:[address] Monk - [phone]. Was told to call back in 15 mins. paul 00:30 Initial lab(s) drawn, by me, sent to lab. First set of blood cultures drawn by me. vk 00:53 Blood Culture Adult (2) Sent. vk 00:53 Lactate w/ 2H reflex if indic. Sent. vk 00:53 Protime (+inr) Sent. vk 01:30 initiated transfer with Michaela \T\ [facility]. Pt was auto accepted by Dr. paul Mustafa \T\ 0113. Admin approval given by Michaela Ace \T\ 0113. Pt will go to the ER for eval. Number for nurse to nurse report [phone]. [facility] to transfer pt. 01:54 No provider procedures requiring assistance completed. kj2 02:15 Patient transferred, IV remains in place. kj2 Administered Medications: 02/05 22:30 Drug: Promethazine IVP 6.25 mg IVP once Route: IVP; Site: left antecubital; kj2 02/06 00:40 Follow up: Response: No adverse reaction kj2 02/05 22:31 Drug: NS 0.9% IV 1000 ml IV at 1 bolus Per protocol; to be given as a bolus over 60 kj2 minutes Route: IV; Rate: 1 bolus; Site: left antecubital; 23:31 Follow up: IV Status: Completed infusion; IV Intake: 1000ml kj2 02/06 01:14 Drug: metoCLOPramide IVP 10 mg IVP once; over 1 to 2 minutes Route: IVP; Site: left [facility] antecubital; 01:40 Follow up: Response: No adverse reaction kj2 Medication: 02/05 22:39 VIS not applicable for this client. kj2 Intake: 23:31 IV: 1000ml; Total: 1000ml. kj2 Outcome: 02/06 00:10 ER care complete, transfer ordered by sb4 02:14 Transferred by ground EMS [facility] kj2 02:14 Condition: stable 02:15 Patient left the ED. kj2 Signatures: Angi Elmore jj6 Aida Eng, RN RN heather1 Shirley Valenzuela, PA-C PA-C sb4 Saumya Barlow, RN RN cm10 Radha Hunt km Danielle Olivier Krystal, RN RN kj2
[2024-02-07] MEDS ORDERED: METOCLOPRAMIDE 10 MG/2mL INJ ONE (01:03)
[2024-02-07 01:50] LABS: PT Prothrombin Time 11.9 SECONDS (9.4-12.5); PTT, Activated Partial Thromb 27.6 SECONDS (24.3-36.9); Protime INR 1.06
[2024-02-07 09:07] VITALS: O2SAT 100
[2024-02-07 09:08] VITALS: BP 124/80; TEMP 97.9
== END 2024-02-07 02:15 | disposition short-term general hospital (02) ==
LOC: ER 20:40
DX: O26.891 Other specified pregnancy related conditions, first trimester (principal); D72.825 Bandemia; Z3A.13 13 weeks gestation of pregnancy; Z11.52 Encounter for screening for COVID-19
CPT/HCPCS: 96361; 87040 ×2; 85025; 81001; 36415; 85610; 83605; 85730; 83690; 80053; 87804 ×2; 96375; 96374; 99285; 87811; J2550; J2765; J7030

== ENCOUNTER 2024-07-17 10:22 | Emergency (ER) | payer BC ==
--- NOTE | 2024-07-17 12:14 | RAD REPORT ---
EXAMINATION: OB Limited COMPARISON: None. HISTORY: [facility] MAIN Decreased movement and possible SROM Bed Name: 6 TECHNIQUE: Real-time ultrasound was performed through the pelvis performed via transabdominal approac h. FINDINGS: There is a single living intrauterine . Fetus in transverse lie. Placenta is forming along the right fundal wall. Cervical internal os closed, canal measures 6.6 cm in length. Both ovaries are not well visualized. There is no free fluid in the cul-de-sac. Measurements and Calculations: Femur length: 69.9 mm, consistent with a sonographic age of 35 weeks, 6 days. The patient's LMP dates is not stated. Heart rate: 153 BPM. ALEIDA: 17.77 cm. MVP: 6.37 cm. IMPRESSION: Single living intrauterine , with a composite sonographic age of 35 weeks, 6 days. Fetus in transverse lie. Estimated due date by ultrasound 08/15/2024. Normal amniotic fluid index for gestational age.
--- NOTE | 2024-07-17 13:46 | ER ---
Nurse's Notes [facility] Name: Trish Arambula Age: 44 yrs Sex: Female : 1980 Arrival Date: 07/17/2024 Time: 10:22 Bed 6 Private MD: Diagnosis: 36 weeks gestation of Presentation: 07/17 10:40 Chief complaint: Patient states: No movement all night, drank something cold and hb felt a tiny bit of movement around 0800, reports wet pants, unsure if fluid is leaking. Coronavirus screen: At this time, the client does not indicate any symptoms associated with coronavirus-19. Ebola Screen: No symptoms or risks identified at this time. Initial Sepsis Screen: Does the patient meet any 2 criteria? No. Patient's initial sepsis screen is negative. Does the patient have a suspected source of infection? No. Patient's initial sepsis screen is negative. Risk Assessment: Do you want to hurt yourself or someone else? Patient reports no desire to harm self or others. Onset of symptoms was July 16, 2024. 10:40 Method Of Arrival: Ambulatory hb 10:40 Acuity: YISSEL 2 hb Triage Assessment: 10:43 General: Appears in no apparent distress. uncomfortable, Behavior is calm, cooperative, hb appropriate for age, anxious. Pain: Denies pain. 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 - Infectious Disease History:: Denies. - Social history:: Smoking status: Patient denies any tobacco usage or history of. Screenin:34 [facility] ED Fall Risk Assessment (Adult) History of falling in the last 3 months, ph including since admission No falls in past 3 months (0 pts) Confusion or Disorientation No (0 pts) Intoxicated or Sedated No (0 pts) Impaired Gait No (0 pts) Mobility Assist Device Used No (0 pt) Altered Elimination No (0 pt) Score/Fall Risk Level 0 - 2 = Low Risk Oriented to surroundings, Maintained a safe environment, Hourly rounding (assess needs \T\ fall precautionary measures) done. Abuse screen: Denies threats or abuse. Has been threatened or abused. Nutritional screening: No deficits noted. Tuberculosis screening: No symptoms or risk factors identified. Assessment: 11:30 General: Appears in no apparent distress. comfortable, well groomed, Behavior is calm, ph cooperative, appropriate for age. Pain: Denies pain. Neuro: Level of Consciousness is awake, alert, obeys commands, Oriented to person, place, time, situation. Cardiovascular: Capillary refill < 3 seconds in bilateral fingers Patient's skin is warm and dry. Respiratory: Airway is patent Respiratory effort is even, unlabored. : Reports discharge, watery. Derm: Skin is pink, warm \T\ dry. Vital Signs: 10:40 BP 148 / 94; Pulse 84; Resp 15; Temp 98; Pulse Ox 100% ; Weight 108.86 kg; Height 5 ft. hb 10 in. ; Pain 0/10; 12:18 BP 134 / 99; Pulse 79; Resp 16; Pulse Ox 99% on R/A; hb 12:34 BP 138 / 99; Pulse 78; Resp 18; Pulse Ox 99% on R/A; ph 13:57 BP 138 / 88; Pulse 72; Resp 18; Temp 98; Pulse Ox 99% on R/A; ph 10:40 Body Mass Index 34.44 (108.86 kg, 177.8 cm) hb 10:40 Pain Scale: Adult hb ED Course: 10:24 Patient arrived in ED. mr 10:35 Kal Del Angel, MARYANNE is Primary Nurse. bp 10:40 Thiago Hebert MD is Attending Physician. bo1 10:43 Triage completed. hb 10:43 Arm band placed on right wrist. hb 11:21 OB Limited In Process Unspecified. EDMS 12:33 called and left a message for Dr. Driss Pablo at [phone] to call the ED back for eb Dr. Hebert. 12:34 Patient has correct armband on for positive identification. Bed in low position. Call ph light in reach. Side rails up X 1. Pulse ox on. NIBP on. Door closed. Noise minimized. Warm blanket given. 13:56 No provider procedures requiring assistance completed. Patient did not have IV access ph during this emergency room visit. Administered Medications: No medications were administered Medication: 12:34 VIS not applicable for this client. ph Outcome: 13:45 Discharge ordered by MD. concepcion 13:56 Discharged to home ambulatory, with family, ph 13:56 Condition: good 13:56 Discharge instructions given to patient, Instructed on discharge instructions, follow up and referral plans. Demonstrated understanding of instructions, follow-up care, 13:57 Patient left the ED. ph Signatures: Dispatcher [employer] EDOH Chana Oneill, Reg Reg mr Samantha Plascencia, RN RN ph Jaki Maldonado RN RN Kal Quintero RN RN Ethel Cummings Benjamin, MD MD bo1
--- NOTE | 2024-07-17 13:46 | EDPHYS ---
Physician Documentation [facility] Name: Trish Arambula Age: 44 yrs Sex: Female : 1980 Arrival Date: 07/17/2024 Time: 10:22 Bed 6 Private MD: ED Physician Thiago Hebert HPI: 07/17 10:52 This 44 yrs old Female presents to ER via Ambulatory with complaints of 36wks , bo1 decreased movement. 10:52 Decreased movement since yesterday, night. Unexplained. No trauma or fever. Extra bo1 "wetness" in the clothing past two days. No bleeding or fever. 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 Planned for this delivery as the fetus was last known to be in a transverse lie.. Onset: The symptoms/episode began/occurred suddenly, 1 day(s) ago. Severity of symptoms: Pain is currently a 0 / 10. The patient has not experienced similar symptoms in the past. Hx of high risk as pt is a - Ab4 prior to end of the 1st trimester. 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 - Infectious Disease History:: Denies. - Social history:: Smoking status: Patient denies any tobacco usage or history of. ROS: 13:38 Constitutional: Negative for fever, chills, and weight loss bo1 13:38 Neck: Negative for injury or acute deformity, pain with movement, pain at rest, 13:38 Cardiovascular: Negative for chest pain, 13:38 Respiratory: Negative for cough, shortness of breath, 13:38 Abdomen/GI: Negative for abdominal pain, nausea and vomiting, 13:38 : Negative for urinary symptoms, Possible leakage as the private area going to the gluteal area has been more "wet" than normal, 13:38 MS/extremity: Negative for acute changes, pain, swelling, 13:38 Skin: Negative for rash, 13:38 All other systems are negative, Exam: 13:40 Constitutional: This is a well developed, well nourished patient who is awake, alert, bo1 and in no acute distress. 13:40 Constitutional: The patient appears in no acute distress, alert, awake, comfortable, non-toxic, 13:40 Neck: Exam negative for acute changes, 13:40 Chest/axilla: Exam negative for 13:40 Cardiovascular: Exam negative for 13:40 Respiratory: Exam negative for acute changes, 13:40 Abdomen/GI: Inspection: gravid appearance, is noted, C/W 36 weeks EGA, 13:40 Back: CVA tenderness, is absent, 13:40 Musculoskeletal/extremity: Extremities: all appear grossly normal, with no appreciated pain with palpation, No swelling or rash. 13:40 Neuro: Deep tendon reflexes are normal, Vital Signs: 10:40 BP 148 / 94; Pulse 84; Resp 15; Temp 98; Pulse Ox 100% ; Weight 108.86 kg; Height 5 ft. hb 10 in. ; Pain 0/10; 12:18 BP 134 / 99; Pulse 79; Resp 16; Pulse Ox 99% on R/A; hb 12:34 BP 138 / 99; Pulse 78; Resp 18; Pulse Ox 99% on R/A; ph 13:57 BP 138 / 88; Pulse 72; Resp 18; Temp 98; Pulse Ox 99% on R/A; ph 10:40 Body Mass Index 34.44 (108.86 kg, 177.8 cm) hb 10:40 Pain Scale: Adult hb MDM: 10:40 Medical Screening Exam initiated bo1 13:42 Differential Diagnosis Premature labor, possible rupture of membranes, distress, bo1 UTI. Data reviewed: vital signs, lab test result(s), radiologic studies, ultrasound. 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 Ultrasound indicates not need for emergent delivery. Pt has had more movement/activity while waiting in the ER. Also, the pH of the "fluid" via a UA dip test strip is not alkaline. No amnio swab or stick, pH paper is available.. 07/17 10:54 Order name: OB Limited; Complete Time: 12:17 EDMS 07/17 10:52 Order name: NPO; Complete Time: 11:33 bo1 Administered Medications: No medications were administered Disposition Summary: 07/17/24 13:45 Discharge Ordered Notes: Location: Home bo1 Problem: new bo1 Symptoms: are unchanged bo1 Condition: Stable bo1 Diagnosis - 36 weeks gestation of bo1 Followup: bo1 - With: Private Physician - When: Today - Reason: Recheck today's complaints, Continuance of care Discharge Instructions: - Discharge Summary Sheet bo1 - Third Trimester of , Eqvs-an-Eaip bo1 Forms: - Medication Reconciliation Form bo1 - Antibiotic Education bo1 - Prescription Opioid Use bo1 - Patient Portal Instructions bo1 - Leadership Thank You Letter bo1 Signatures: Dispatcher [employer] Jaki Marquez RN [facility] bo1 Corrections: (The following items were deleted from the chart) 10:51 10:51 OB Complete+US.RAD.BRZ ordered. EDMS EDMS
[2024-07-17 14:02] VITALS: TEMP 98
[2024-07-17 14:03] VITALS: O2SAT 99
[2024-07-17 14:06] VITALS: BP 138/88
== END 2024-07-17 13:57 | disposition home or self-care (01) ==
LOC: ER 10:22
DX: O36.8130 Decreased fetal movements, third trimester, not applicable or unspecified (principal); O99.283 Endocrine, nutritional and metabolic diseases complicating pregnancy, third trimester; E03.9 Hypothyroidism, unspecified; Z3A.36 36 weeks gestation of pregnancy
CPT/HCPCS: 76815; 99283